=== PATIENT | female | born 1975 | race Caucasian/White ===

== ENCOUNTER 2016-06-23 14:40 | Emergency (ER) | payer SELFPAY ==
[~2016-06-23] VITALS: Ht 152.4 cm; Wt 133.0 kg
[2016-06-23 14:52] VITALS: TEMP 36.5; Ht 152.4 cm; Wt 133.0 kg
--- NOTE | 2016-06-23 15:43 | EMERGENCY ROOM VISIT NOTE ---
History Report prepared by Ludmila: Alta Acosta Under the Supervision of: Dr. Noah Brown M.D. First contact with patient: 15:03 Chief Complaint: HYPERGLYCEMIA Stated Complaint: FREQUENT URINATION,BLURRED VISION,THIRSTY Nursing Triage Summary: Triage note: Pt ambulatory to triage. pt reports "for the past week i have been feeling off and not myself." pt reports for the past week headache, increased thirst, and "going to the bathroom a lot." pt denies any hx of being a diabetic but had her bsg checked at home at 1305 and it was 305 and bsg was 267 at 1400. History of Present Illness The patient is a 40 year old female who presents to the Emergency Room with complaints of waxing and waning hyperglycemia for the past couple of weeks. The patient reports dry mouth, increased thirst, and increased urination over the past few weeks. Her brother has Diabetes and has been checking her blood sugar. He states that it has been in the high 200s and low 300s. 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 The patient reports a headache and tingling in her hands. She states that she just feels generally "weird." She has not eaten anything today. Source of History: patient, family (brother) Onset: a couple of weeks ago Position: other (global) Symptom Intensity: BSG 250 - 308 Quality: other (hyperglycemia) Timing: waxes/wanes Associated Symptoms: + headache Review of Systems See HPI for pertinent positives & negatives. A total of 10 systems reviewed and were otherwise negative. Past Medical & Surgical Medical Problems: (1) Asthma, Unspecified (2) Morbid Obesity (3) Otitis externa of right ear (4) Otitis externa of right ear Surgical Problems: (1) Previous section (2) S/P appendectomy (3) S/P tonsillectomy (4) Tubal Ligation Status Family History Cancer Diabetes mellitus Heart disease Hypertension Social History Smoking Status: Current Every Day Smoker Alcohol Use: none Marital Status: single Occupation Status: employed Current/Historical Medications No Active Prescriptions or Reported Meds Allergies Coded Allergies: Amoxicillin (Verified Allergy, Intermediate, HIVES SOB, 04/04/15) Acetaminophen (Verified Allergy, Unknown, 04/04/15) Codeine (Verified Allergy, Unknown, 04/04/15) Penicillins (Verified Allergy, Unknown, hives, sob, 04/04/15) Physical Exam Vital Signs Date Time Temp Pulse Resp B/P Pulse Ox O2 Delivery O2 Flow Rate FiO2 06/23/16 17:39 90 20 127/86 97 06/23/16 16:16 87 06/23/16 16:12 84 20 95/67 97 Room Air 06/23/16 14:52 36.5 100 18 144/88 96 Room Air Physical Exam GENERAL: Patient is a healthy-appearing well-nourished 40 year old female HEAD: Normocephalic atraumatic EYES: Ocular movements intact pupils equal and react to light OROPHARYNX mucous membranes are moist no exudates present no erythema or edema present NECK: Supple no nuchal rigidity CHEST: Good equal expansion LUNGS: Clear and equal to auscultation CARDIAC: Normal S1 and S2 ABDOMEN: Soft nontender no guarding BACK: No CVA tenderness EXTREMITIES: No pain upon palpation normal muscle strength in all groups no clubbing cyanosis or edema NEURO: Patient is following commands is answering questions appropriately. Alert and oriented x3 Cranial Nerves 2-12 grossly intact Medical Decision & Procedures ER Provider Diagnostic Interpretation: Radiology results as stated below per my review and radiologist interpretation: CT SCAN OF THE BRAIN WITHOUT IV CONTRAST CLINICAL HISTORY: Headache. COMPARISON STUDY: CT scan of the temporal bones dated 12/10/2013. TECHNIQUE: Unenhanced axial CT scan of the brain is performed from the vertex to the skull base. Automated dose control exposure was utilized. CT DOSE: 751.47 mGy.cm FINDINGS: Brain parenchyma: The brain parenchyma is normal in appearance. There is no hemorrhage, mass effect, or evidence of acute territorial ischemia by CT criteria. Martinez-white matter is preserved. No extra-axial fluid collection is seen. Ventricles, sulci, cisterns: Normal in configuration. Intracranial vasculature: The visualized intracranial vasculature at the skull base is normal in appearance. Calvarium: Unremarkable. Sinuses and mastoids: The visualized paranasal sinuses are clear. The mastoid air cells are well pneumatized. Orbits: The bony orbits are grossly intact. IMPRESSION: No acute intracranial abnormality. Electronically signed by: Edgard Cody M.D. 06/23/2016 4:28 PM Dictated Date/Time: 06/23/2016 4:26 PM Laboratory Results 06/23/16 15:55 Red Blood Count 5.42, Mean Corpuscular Volume 88.4, Mean Corpuscular Hemoglobin 31.4, Mean Corpuscular Hemoglobin Concent 35.5, Mean Platelet Volume 10.5, Neutrophils (%) (Auto) 57.6, Lymphocytes (%) (Auto) 35.6, Monocytes (%) (Auto) 4.5, Eosinophils (%) (Auto) 1.8, Basophils (%) (Auto) 0.3, Neutrophils # (Auto) 5.92, Lymphocytes # (Auto) 3.66, Monocytes # (Auto) 0.46, Eosinophils # (Auto) 0.18, Basophils # (Auto) 0.03 06/23/16 15:55 Test 06/23/16 15:20 06/23/16 15:55 Bedside Glucose 136 mg/dl (70-90) White Blood Count 10.27 K/uL (4.8-10.8) Red Blood Count 5.42 M/uL (4.2-5.4) Hemoglobin 17.0 g/dL (12.0-16.0) Hematocrit 47.9 % (37-47) Mean Corpuscular Volume 88.4 fL (80-100) Mean Corpuscular Hemoglobin 31.4 pg (25-34) Mean Corpuscular Hemoglobin Concent 35.5 g/dl (32-36) Platelet Count 295 K/uL (130-400) Mean Platelet Volume 10.5 fL (7.4-10.4) Neutrophils (%) (Auto) 57.6 % Lymphocytes (%) (Auto) 35.6 % Monocytes (%) (Auto) 4.5 % Eosinophils (%) (Auto) 1.8 % Basophils (%) (Auto) 0.3 % Neutrophils # (Auto) 5.92 K/uL (1.4-6.5) Lymphocytes # (Auto) 3.66 K/uL (1.2-3.4) Monocytes # (Auto) 0.46 K/uL (0.11-0.59) Eosinophils # (Auto) 0.18 K/uL (0-0.5) Basophils # (Auto) 0.03 K/uL (0-0.2) RDW Standard Deviation 43.1 fL (36.4-46.3) RDW Coefficient of Variation 13.4 % (11.5-14.5) Immature Granulocyte % (Auto) 0.2 % Immature Granulocyte # (Auto) 0.02 K/uL (0.00-0.02) Urine Color YELLOW Urine Appearance CLEAR (CLEAR) Urine pH 6.0 (4.5-7.5) Urine Specific [place] <= 1.005 (1.000-1.030) Urine Protein NEG (NEG) Urine Glucose (UA) NEG (NEG) Urine Ketones NEG (NEG) Urine Occult Blood NEG (NEG) Urine Nitrite NEG (NEG) Urine Bilirubin NEG (NEG) Urine Urobilinogen NEG (NEG) Urine Leukocyte Esterase NEG (NEG) Anion Gap 7.0 mmol/L (3-11) Est Creatinine Clear Calc Drug Dose 144.7 ml/min Estimated GFR () 129.2 Estimated GFR (Non- 111.5 BUN/Creatinine Ratio 12.5 (10-20) Calcium Level 9.2 mg/dl (8.5-10.1) Total Bilirubin 0.6 mg/dl (0.2-1) Direct Bilirubin mg/dl (0-0.2) Aspartate Amino Transf (AST/SGOT) U/L (15-37) Alanine Aminotransferase (ALT/SGPT) 39 U/L (12-78) Alkaline Phosphatase 73 U/L (45-117) Total Protein 7.8 gm/dl (6.4-8.2) Albumin 3.9 gm/dl (3.4-5.0) Triglycerides Level 119 mg/dl (0-150) Cholesterol Level 138 mg/dl (0-200) HDL Cholesterol 30 mg/dl LDL Cholesterol, Calculated 84 mg/dl VLDL Cholesterol, Calculated 24 mg/dl Cholesterol/HDL Ratio 4.6 Lipase 130 U/L (73-393) Labs reviewed by ED physician. Medications Administered Medications (Trade) Dose Ordered Sig/Monique Route Start Time Stop Time Status Last Admin Dose Admin Sodium Chloride (Nss 1000ml) 1,000 ml @ 999 mls/hr Q1H1M STAT IV 06/23/16 15:45 06/23/16 16:45 DC 06/23/16 16:01 999 MLS/HR Ketorolac Tromethamine (Toradol Inj) 30 mg NOW STAT IV 06/23/16 15:45 06/23/16 15:47 DC 06/23/16 16:00 30 MG Prochlorperazine Edisylate (Compazine Inj) 10 mg NOW STAT IV 06/23/16 15:45 06/23/16 15:47 DC 06/23/16 16:01 10 MG Diphenhydramine HCl (Benadryl Inj) 50 mg NOW STAT IV 06/23/16 15:45 06/23/16 15:47 DC 06/23/16 16:01 50 MG ED Course 1503: Past medical records reviewed. The patient was evaluated in room B11B. A complete history and physical examination was performed. 1545: Benadryl 50 mg IV, Compazine 10 mg IV, Toradol 30 mg IV, NSS 1000 ml @ 999 mls/hr IV 1653: I reassessed the patient at this time. She is doing well. 1736: I reassessed the patient. She is feeling better and resting comfortably. I discussed the results and treatment plan with the patient. I answered all pertaining questions that she had. She expressed understanding and verbalized agreement. The patient will be discharged home. Medical Decision This is a 40-year-old female who presents emergency department over concerns she has been taking her sugar at home and is been high. Upon arrival to the emergency department the patient does not have a large elevation in her blood sugar. She has been fasting today therefore a lipid panel was obtained along with a hemoglobin A1c. I did have case management see the patient so that the patient can be seen by [facility] and so we can get started on the patient's insurance. The patient was given normal saline bolus, Toradol, , zinc, Benadryl for her headache. Repeat examination revealed improvement patient's symptoms. I do believe the patient as well as discharged home however stressed the need for close follow-up with [facility]. Patient was in agreement with the treatment plan. Impression Primary Impression: Hyperglycemia Scribe Attestation The scribe's documentation has been prepared under my direction and personally reviewed by me in its entirety. I confirm that the note above accurately reflects all work, treatment, procedures, and medical decision making performed by me. Departure Information Dispostion Home / Self-Care Prescriptions No Active Prescriptions or Reported Meds Referrals No Doctor, Assigned (PCP) [facility] Forms HOME CARE DOCUMENTATION FORM, IMPORTANT VISIT INFORMATION, WORK / SCHOOL INSTRUCTIONS Patient Instructions ED Hyperglycemia New Susp Diabetes, My [facility] Additional Instructions Need follow up with [facility] You have been examined and treated today on an emergency basis only. This is not a substitute for, or an effort to provide, complete comprehensive medical care. It is impossible to recognize and treat all injuries or illnesses in a single emergency department visit. It is therefore important that you follow up closely with [facility]. Call as soon as possible for an appointment. Thank you for your time and consideration. I look forward to speaking with you again soon. Please don't hesitate to call us if you have any questions.
[2016-06-23] MEDS ORDERED: KETOROLAC TROMETHAMINE 30 MG/ML VIAL IV STA (15:45)
[2016-06-23] MEDS ORDERED: SODIUM CHLORIDE 0.9% 1000ML 1,000 ML IV STA (15:45)
[2016-06-23] MEDS ORDERED: PROCHLORPERAZINE 5 MG/ML 2 ML VIAL IV STA (15:45)
[2016-06-23] MEDS ORDERED: DiphenhydrAMINE HCL 50 MG/ML VIAL IV STA (15:45)
[2016-06-23 16:09] LABS: MANUAL MICROSCOPIC REQUIRED? NO; REVIEW REQ? NO; URINE APPEARANCE CLEAR (CLEAR); URINE BILIRUBIN NEG (NEG); URINE COLOR YELLOW; URINE NITRITE NEG (NEG); URINE SPECIFIC GRAVITY <= 1.005 (1.000-1.030); UROBILINOGEN NEG (NEG)
[2016-06-23 16:20] LABS: BASO % 0.3 %; BASO ABS # 0.03 K/uL (0-0.2); COMPLETE YES; EOS % 1.8 %; HEMATOCRIT 47.9 % (37-47); IG% 0.2 %; LYMPH % 35.6 %; LYMPH ABS # 3.66 K/uL (1.2-3.4); MEAN CELL VOLUME 88.4 fL (80-100); MEAN CORPUSCULAR HEMOGLOBIN 31.4 pg (25-34); MEAN CORPUSCULAR HGB CONC 35.5 g/dl (32-36); MEAN PLATELET VOLUME 10.5 fL (7.4-10.4); MONO % 4.5 %; NEUT % 57.6 %; PLATELET COUNT 295 K/uL (130-400); RED BLOOD COUNT 5.42 M/uL (4.2-5.4); WHITE BLOOD COUNT 10.27 K/uL (4.8-10.8)
--- NOTE | 2016-06-23 16:29 | DIAGNOSTIC IMAGING REPORT ---
CT SCAN OF THE BRAIN WITHOUT IV CONTRAST CLINICAL HISTORY: Headache. COMPARISON STUDY: CT scan of the temporal bones dated 12/10/2013. TECHNIQUE: Unenhanced axial CT scan of the brain is performed from the vertex to the skull base. Automated dose control exposure was utilized. CT DOSE: 751.47 mGy.cm FINDINGS: Brain parenchyma: The brain parenchyma is normal in appearance. There is no hemorrhage, mass effect, or evidence of acute territorial ischemia by CT criteria. Martinez-white matter is preserved. No extra-axial fluid collection is seen. Ventricles, sulci, cisterns: Normal in configuration. Intracranial vasculature: The visualized intracranial vasculature at the skull base is normal in appearance. Calvarium: Unremarkable. Sinuses and mastoids: The visualized paranasal sinuses are clear. The mastoid air cells are well pneumatized. Orbits: The bony orbits are grossly intact. IMPRESSION: No acute intracranial abnormality. Electronically signed by: Edgard Cody M.D. 06/23/2016 4:28 PM Dictated Date/Time: 06/23/2016 4:26 PM
[2016-06-23 16:42] LABS: ALKALINE PHOSPHATASE 73 U/L (45-117); ALT/SGPT 39 U/L (12-78); BLOOD UREA NITROGEN 8 mg/dl (7-18); CALCIUM 9.2 mg/dl (8.5-10.1); CARBON DIOXIDE 26 mmol/L (21-32); CREATININE 0.67 mg/dl (0.60-1.20); TRIGLYCERIDES 119 mg/dl (0-150)
[2016-06-23 16:44] LABS: BUN/CREATININE RATIO 12.5 (10-20); CHLORIDE 105 mmol/L (98-107); CHOLESTEROL 138 mg/dl (0-200); CHOLESTEROL/HDL RATIO 4.6; GLUCOSE 126 mg/dl (70-99); HDL CHOLESTEROL 30 mg/dl; LDL CHOLESTEROL CALCULATED 84 mg/dl; SODIUM 138 mmol/L (136-145); VERY LOW DENSITY LIPOPROT CALC 24 mg/dl
[2016-06-23 17:39] VITALS: BP 127/86; PULSE 90; O2SAT 97
[2016-06-25 06:05] LABS: ESTIMATED AVERAGE GLUCOSE 183 mg/dl; HA1C FLAG Normal (Normal)
[2016-09-14] MEDS ORDERED: ATOR10TA88 PO (18:02)
== END 2016-06-23 17:40 | disposition home or self-care (01) ==
LOC: C.EDB 14:41
DX: R73.9 Hyperglycemia, unspecified (principal); J45.909 Unspecified asthma, uncomplicated; E66.01 Morbid (severe) obesity due to excess calories; F17.210 Nicotine dependence, cigarettes, uncomplicated

== ENCOUNTER 2016-09-14 17:15 | Emergency (ER) | payer OTHER ==
[~2016-09-14] VITALS: Ht 157.5 cm; Wt 125.7 kg
[2016-09-14 17:28] VITALS: TEMP 36.7; Ht 157.5 cm; Wt 125.7 kg
[2016-09-14] MEDS ORDERED: ATOR10TA82 PO (18:02)
[2016-09-14] MEDS ORDERED: ASPI81TA25 PO (18:02)
[2016-09-14] MEDS ORDERED: GLC/500 PO (18:02)
[2016-09-14] MEDS ORDERED: KETOROLAC TROMETHAMINE 60 MG/2 ML VIAL IM STA (18:30)
[2016-09-14] MEDS ORDERED: CYCLOBENZAPRINE HCL 10 MG TAB PO STA (18:30)
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
[2016-09-14 19:28] VITALS: BP 121/67; PULSE 74; O2SAT 96
[2016-09-14] MEDS ORDERED: CYCL10TA6 PO (19:35)
== END 2016-09-14 19:46 | disposition home or self-care (01) ==
LOC: C.EDB 17:18 → C.EDA 19:46
DX: M54.2 Cervicalgia (principal); M25.512 Pain in left shoulder; V43.52XA Car driver injured in collision with other type car in traffic accident, initial encounter; Y92.488 Other paved roadways as the place of occurrence of the external cause; J45.909 Unspecified asthma, uncomplicated; E11.9 Type 2 diabetes mellitus without complications; E78.5 Hyperlipidemia, unspecified; E66.01 Morbid (severe) obesity due to excess calories; Z79.82 Long term (current) use of aspirin; Z79.899 Other long term (current) drug therapy; F17.210 Nicotine dependence, cigarettes, uncomplicated

== ENCOUNTER 2021-03-01 15:30 | Inpatient (IN) ==
[2021-03-01 16:37] LABS: Albumin Globulin Ratio 0.6 (0.9-2); Albumin Level 3.1 gm/dl (3.4-5.0); BUN Creatinine Ratio 11.2 (10-20); Bilirubin,Total 0.5 mg/dl (0.2-1); Calcium 9.6 mg/dl (8.5-10.1); Creatinine Clr Calc Pharmacy 115.8 ml/min; Est GFR (African American) 116.9 ml/min; Est GFR (Non-African American) 100.9 ml/min; Globulin 5.1 gm/dl (2.5-4.0); Total Protein 8.2 gm/dl (6.4-8.2)
[2021-03-01 17:14] LABS: Basophils # (auto) 0.02 K/uL (0-0.2); Basophils % (auto) 0.2 %; Eosinophils # (auto) 0.15 K/uL (0-0.5); Eosinophils % (auto) 1.2 %; Hematocrit (blood only) 48.3 % (37-47); Hemoglobin 17.3 g/dL (12.0-16.0); Immature Granulocytes # (auto) 0.03 K/uL (0.00-0.02); Immature Granulocytes % (auto) 0.2 %; Lymphocytes # (auto) 3.74 K/uL (1.2-3.4); Lymphocytes % (auto) 30.7 %; Mean Corpuscular Hemoglobin 30.8 pg (25-34); Mean Corpuscular Hgb Conc 35.8 g/dL (32-36); Mean Corpuscular Volume 86.1 fL (80-100); Mean Platelet Volume 9.6 fL (7.4-10.4); Monocytes # (auto) 0.86 K/uL (0.11-0.59); Monocytes % (auto) 7.1 %; Neutrophils # (auto) 7.37 K/uL (1.4-6.5); Neutrophils % (auto) 60.6 %; Platelet Count 359 K/uL (130-400); RDW Coefficient of Variation 13.2 % (11.5-14.5); Red Blood Count 5.61 M/uL (4.2-5.4); White Blood Count 12.17 K/uL (4.8-10.8)
[2021-03-01 17:34] LABS: Potassium 4.9 mmol/L (3.5-5.1)
[2021-03-01 17:47] LABS: Beta-Hydroxybutyrate 1.6 mg/dl (0.2-2.81)
[2021-03-01] MEDS ORDERED: MoRPHine SULFATE 4 MG/ML 1 ML CARP\\VIAL IV STA (18:29)
[2021-03-01] MEDS ORDERED: SODIUM CHLORIDE 0.9% 1000ML 1,000 ML IV ONE (18:29)
[2021-03-01] MEDS ORDERED: ONDANSETRON INJ 2 MG/ML 2 ML VIAL IV STA (18:29)
[2021-03-01] MEDS ORDERED: NovoLIN-R INSULIN PER UNIT CHARGE IV STA (18:31)
--- NOTE | 2021-03-01 18:35 | Emergency Department Note ---
History of Present Illness General Chief complaint: Dental/Oral Stated complaint: MOUTH PAIN AND SWELLING Time Seen by Provider: 03/01/21 18:22 Source: patient History of Present Illness Provider complaint: Facial pain Onset (ago): day(s) Location: face, mouth and right Pain Consistency: + constant Maximum Pain Intensity: 10 Quality: + sharp Relieved By: + none Associated symptoms: + fever/chills and + nausea/vomiting (Nausea without vomiting); no chest pain, no cough, no headaches or no shortness of breath This is a 45-year-old female who presents with facial pain status post 3 dental extractions approximately 8 days ago. She describes pain as sharp. She rates it a 10 out of 10 in severity. It does radiate to behind her eyes. Is worse when she touches it. It is associated with facial swelling. She was reevaluated by her dentist who stated it was not dry socket. She has an appo intment tomorrow to see him again but she could not wait due to the pain. She was given Tylenol with codeine No. 3. She also just finished her course of clindamycin over 10 days. She has nausea without vomiting. She had a fever of 101. She denies any cough, chest pain, shortness of breath, abdominal pain. She has not checked her sugars. Home Medications Medication Instructions Recorded Confirmed Type multivitamin (Daily Multi-Vitamin) 1 tab PO QAM 08/06/19 03/01/21 History omeprazole 20 mg capsule,delayed 40 mg PO BID 11/26/19 03/01/21 History release metformin 500 mg tablet,extended 1,000 mg PO BID 02/25/20 03/01/21 History release 24 hr aspirin 81 mg tablet,delayed 81 mg PO QAM 02/03/21 03/01/21 History release (Aspirin Low Dose) lisinopril 5 mg tablet (Zestril) 5 mg PO QAM 02/03/21 03/01/21 History rosuvastatin 20 mg tablet (Crestor) 20 mg PO QAM 02/03/21 03/01/21 History oxycodone 5 mg tablet 5 mg PO Q4H PRN #15 tab 02/18/21 03/01/21 Rx Saccharomyces boulardii 250 mg 250 mg PO BID #20 cap 02/19/21 03/01/21 Rx capsule (Florastor) Pill Form Of Trulicity 1 dose PO DIRECTED 03/01/21 03/01/21 History Allergies Allergy/AdvReac Type Severity Reaction Status Date / Time amoxicillin Allergy Intermediate Hives and Verified 03/01/21 18:06 shortness of breath Penicillins Allergy Intermediate Hives and Verified 03/01/21 18:06 shortness of breath Past Med/Surg History Medical History (Updated 03/01/21 @ 21:51 by Emir Zepeda MD) Diabetes mellitus, type 2 HLD (hyperlipidemia) Hx of bronchitis Hypertension No significant family history Osteoarthritis Peripheral neuropathy Surgical History History of appendectomy History of section X 1 History of tonsillectomy and adenoidectomy [place] teeth removed Family History Brother Family history of diabetes mellitus Grandmother (Maternal) Family history of diabetes mellitus Social History Smoking Status: Current every day smoker Tobacco Type: Cigarettes Cigarettes Per Day: 10-20 DAILY; Second Hand Exposure: Yes; Hx Alcohol Use: No Hx Substance Use: Yes Last Used Substance Other:: LAST USED 2-3 WEEKS (ADVISED) Preferred Language: Citizen Of [place] [employer] Straight[employer] Required: No Beliefs That Will Affect Care: None marital status: Current Living Situation: Spouse Feels Safe at Home: Yes Assistive Devices: Glasses Review of Systems See HPI for pertinent positives & negatives. and A total of 10 systems reviewed and were otherwise negative Physical Exam Vital Signs Vital Signs - 24 hr 03/01/21 15:31 03/01/21 18:20 03/01/21 19:13 Temperature 36.4 C L Temperature Source Oral Pulse Rate 122 H 114 H Pulse Rate [Right Finger] 95 H Pulse Rate from SpO2 Sensor 115 H Pulse Rhythm [Right Finger] Regular Respiratory Rate 20 20 20 Respiratory Effort / Characteristics Non-Labored Spontaneous Non-Labored Spontaneous Respiratory Depth Normal Normal Respiratory Pattern Regular Blood Pressure 158/109 H 142/89 H Blood Pressure [Right Arm] 147/109 H Blood Pressure Mean 125 106 Blood Pressure Mean [Right Arm] 121 Blood Pressure Position [Right Arm] Lying Pulse Oximetry 96 100 99 Oxygen Delivery Method Room Air Room Air Room Air Sepsis Recent Fever Within 48 Hours No Sepsis New/Unexplained Change in Mental Status N/A Sepsis Action Taken by Nursing No Action Required 03/01/21 19:32 03/01/21 20:01 03/01/21 21:00 Temperature Temperature Source Pulse Rate 82 Pulse Rate [Right Finger] Pulse Rate from SpO2 Sensor 83 Pulse Rhythm [Right Finger] Respiratory Rate 14 Respiratory Effort / Characteristics Respiratory Depth Respiratory Pattern Blood Pressure 132/80 161/92 H 178/99 H Blood Pressure [Right Arm] Blood Pressure Mean 97 115 125 Blood Pressure Mean [Right Arm] Blood Pressure Position [Right Arm] Pulse Oximetry 96 99 97 Oxygen Delivery Method Room Air Room Air Room Air Sepsis Recent Fever Within 48 Hours Sepsis New/Unexplained Change in Mental Status Sepsis Action Taken by Nursing 03/01/21 21:30 Temperature Temperature Source Pulse Rate 94 H Pulse Rate [Right Finger] Pulse Rate from SpO2 Sensor 92 H Pulse Rhythm [Right Finger] Respiratory Rate 24 Respiratory Effort / Characteristics Respiratory Depth Respiratory Pattern Blood Pressure 162/92 H Blood Pressure [Right Arm] Blood Pressure Mean 115 Blood Pressure Mean [Right Arm] Blood Pressure Position [Right Arm] Pulse Oximetry 97 Oxygen Delivery Method Sepsis Recent Fever Within 48 Hours Sepsis New/Unexplained Change in Mental Status Sepsis Action Taken by Nursing Constitutional: Vital signs reviewed. Eyes: Pupils are equal round reactive to light. Conjunctiva are noninjected. No proptosis. Pain with extraocular movement. ENT: Pharynx is clear without erythema or exudate. Mucous membranes are moist. Status post dental extractions right maxillary jaw. No evidence of dry socket. Tenderness diffusely throughout the area with tenderness to the right face over the maxillary sinus. Neck supple without meningeal signs. Respiratory: Clear to auscultation bilaterally. Breath sounds are equal bilaterally. Cardiovascular: Regular rate and rhythm. No rubs or gallops. GI: Soft, nondistended and nontender. Bowel sounds are present. Musculoskeletal: No peripheral edema. No lower extremity tenderness. Integumentary: No cyanosis. or jaundice. Neurological: The patient is awake and alert. No focal deficits. Psychiatric: Anxious. Course Administered Medications Discontinued Medications Hydromorphone HCl (Hydromorphone Inj 0.5 Mg/0.5 Ml Syr) 0.5 mg IV NOW STA Stop: 03/01/21 19:45 Last Admin: 03/01/21 20:16 Dose: 0.5 mg Documented by: [id number] Hydromorphone HCl (Hydromorphone Inj 0.5 Mg/0.5 Ml Syr) 0.5 mg IV NOW STA Stop: 03/01/21 21:45 Last Admin: 03/01/21 21:49 Dose: 0.5 mg Documented by: [id number] Sodium Chloride (Nss 1000ml) 1,000 mls @ 999 mls/hr IV .Q1H1M ONE Stop: 03/01/21 19:29 Last Infusion: 03/01/21 20:08 Dose: 0 mls/hr Documented by: [id number] Admin: 03/01/21 19:07 Dose: 999 mls/hr Documented by: [id number] Ceftriaxone Sodium (Rocephin) 2,000 mg in 70 mls @ 140 mls/hr IV NOW STA Stop: 03/01/21 20:13 Last Infusion: 03/01/21 20:47 Dose: 0 mls/hr Documented by: [id number] Admin: 03/01/21 20:17 Dose: 140 mls/hr Documented by: [id number] Metronidazole (Flagyl) 500 mg in 100 mls @ 100 mls/hr IV NOW STA Stop: 03/01/21 21:02 Last Infusion: 03/01/21 22:01 Dose: 0 mls/hr Documented by: [id number] Admin: 03/01/21 21:00 Dose: 100 mls/hr Documented by: [id number] Insulin Human Regular (Novolin-R Insulin Per Unit Charge) 5 units IV NOW STA Stop: 03/01/21 18:32 Last Admin: 03/01/21 19:06 Dose: 5 units Documented by: [id number] Cosigned by: [id number] Ioversol (Optiray 320 100ml) 95 ml IV ONCE ONE Stop: 03/01/21 19:27 Last Admin: 03/01/21 19:28 Dose: 95 ml Documented by: [id number] Morphine Sulfate (Morphine Sulfate 4 Mg/Ml 1 Ml Carp\Vial) 4 mg IV NOW STA Stop: 03/01/21 18:30 Last Admin: 03/01/21 19:07 Dose: 4 mg Documented by: [id number] Ondansetron HCl (Ondansetron Inj 2 Mg/Ml 2 Ml Vial) 4 mg IV NOW STA Stop: 03/01/21 18:30 Last Admin: 03/01/21 19:07 Dose: 4 mg Documented by: [id number] Medical Decision Making Differential Diagnosis Cellulitis, abscess, orbital cellulitis, postoperative pain, dry socket Medical Records Attestation: I reviewed the patient's medical records. I did perform a limited focused review of portions of the patient's old chart on the electronic medical record. The patient was seen here on the of this month for dental pain. She had a CT scan of the face which did not show an abscess. She was discharged home to follow-up with her dentist. Home Medications Current Medication List: was personally reviewed by me Laboratory Data Attestation: I reviewed the patient's lab results. Result diagrams: 03/01/21 17:01 03/01/21 17:01 Lab Results 03/01/21 03/01/21 03/01/21 Range/Units 16:00 17:01 17:01 WBC 12.17 H (4.8-10.8) K/uL RBC 5.61 H (4.2-5.4) M/uL Hgb 17.3 H (12.0-16.0) g/dL Hct 48.3 H (37-47) % MCV 86.1 (80-100) fL MCH 30.8 (25-34) pg MCHC 35.8 (32-36) g/dL RDW Std Deviation 42.0 (36.4-46.3) fL RDW Coeff of Luke 13.2 (11.5-14.5) % Plt Count 359 (130-400) K/uL MPV 9.6 (7.4-10.4) fL Immature Gran % (Auto) 0.2 % Neut % (Auto) 60.6 % Lymph % (Auto) 30.7 % Newton % (Auto) 7.1 % Eos % (Auto) 1.2 % Baso % (Auto) 0.2 % Neut # (Auto) 7.37 H (1.4-6.5) K/uL Lymph # (Auto) 3.74 H (1.2-3.4) K/uL Newton # (Auto) 0.86 H (0.11-0.59) K/uL Eos # (Auto) 0.15 (0-0.5) K/uL Baso # (Auto) 0.02 (0-0.2) K/uL Immature Gran # (Auto) 0.03 H (0.00-0.02) K/uL Sodium 128 L (136-145) mmol/L Potassium 4.9 (3.5-5.1) mmol/L Chloride 100 (98-107) mmol/L Carbon Dioxide 21 (21-32) mmol/L Anion Gap 7.0 (3-11) BUN 8 (7-18) mg/dl Creatinine 0.73 (0.6-1.2) mg/dl Est Cr Clr Drug Dosing 115.8 ml/min Est GFR ( Amer) 116.9 ml/min Est GFR (Non-Af Amer) 100.9 ml/min BUN/Creatinine Ratio 11.2 (10-20) Glucose 342 H* (70-99) mg/dl POC Glucose (70-99) mg/dl Calcium 9.6 (8.5-10.1) mg/dl Total Bilirubin 0.5 (0.2-1) mg/dl AST 21 (15-37) U/L ALT 41 (12-78) U/L Alkaline Phosphatase 72 (45-117) U/L Total Protein 8.2 (6.4-8.2) gm/dl Albumin 3.1 L (3.4-5.0) gm/dl Globulin 5.1 H (2.5-4.0) gm/dl Albumin/Globulin Ratio 0.6 L (0.9-2) Beta-Hydroxybutyric Acd 1.60 (0.2-2.81) mg/dl HCG, Qual (Negative) COVID-19 Eval Order SARS-CoV-2 (PCR) (Negative) 03/01/21 03/01/21 03/01/21 Range/Units 17:01 20:00 20:00 WBC (4.8-10.8) K/uL RBC (4.2-5.4) M/uL Hgb (12.0-16.0) g/dL Hct (37-47) % MCV (80-100) fL MCH (25-34) pg MCHC (32-36) g/dL RDW Std Deviation (36.4-46.3) fL RDW Coeff of Luke (11.5-14.5) % Plt Count (130-400) K/uL MPV (7.4-10.4) fL Immature Gran % (Auto) % Neut % (Auto) % Lymph % (Auto) % Newton % (Auto) % Eos % (Auto) % Baso % (Auto) % Neut # (Auto) (1.4-6.5) K/uL Lymph # (Auto) (1.2-3.4) K/uL Newton # (Auto) (0.11-0.59) K/uL Eos # (Auto) (0-0.5) K/uL Baso # (Auto) (0-0.2) K/uL Immature Gran # (Auto) (0.00-0.02) K/uL Sodium (136-145) mmol/L Potassium (3.5-5.1) mmol/L Chloride (98-107) mmol/L Carbon Dioxide (21-32) mmol/L Anion Gap (3-11) BUN (7-18) mg/dl Creatinine (0.6-1.2) mg/dl Est Cr Clr Drug Dosing ml/min Est GFR ( Amer) ml/min Est GFR (Non-Af Amer) ml/min BUN/Creatinine Ratio (10-20) Glucose (70-99) mg/dl POC Glucose (70-99) mg/dl Calcium (8.5-10.1) mg/dl Total Bilirubin (0.2-1) mg/dl AST (15-37) U/L ALT (12-78) U/L Alkaline Phosphatase (45-117) U/L Total Protein (6.4-8.2) gm/dl Albumin (3.4-5.0) gm/dl Globulin (2.5-4.0) gm/dl Albumin/Globulin Ratio (0.9-2) Beta-Hydroxybutyric Acd (0.2-2.81) mg/dl HCG, Qual Negative (Negative) COVID-19 Eval Order Covid19 at [facility] SARS-CoV-2 (PCR) NEGATIVE (Negative) 03/01/21 Range/Units 21:40 WBC (4.8-10.8) K/uL RBC (4.2-5.4) M/uL Hgb (12.0-16.0) g/dL Hct (37-47) % MCV (80-100) fL MCH (25-34) pg MCHC (32-36) g/dL RDW Std Deviation (36.4-46.3) fL RDW Coeff of Luke (11.5-14.5) % Plt Count (130-400) K/uL MPV (7.4-10.4) fL Immature Gran % (Auto) % Neut % (Auto) % Lymph % (Auto) % Newton % (Auto) % Eos % (Auto) % Baso % (Auto) % Neut # (Auto) (1.4-6.5) K/uL Lymph # (Auto) (1.2-3.4) K/uL Newton # (Auto) (0.11-0.59) K/uL Eos # (Auto) (0-0.5) K/uL Baso # (Auto) (0-0.2) K/uL Immature Gran # (Auto) (0.00-0.02) K/uL Sodium (136-145) mmol/L Potassium (3.5-5.1) mmol/L Chloride (98-107) mmol/L Carbon Dioxide (21-32) mmol/L Anion Gap (3-11) BUN (7-18) mg/dl Creatinine (0.6-1.2) mg/dl Est Cr Clr Drug Dosing ml/min Est GFR ( Amer) ml/min Est GFR (Non-Af Amer) ml/min BUN/Creatinine Ratio (10-20) Glucose (70-99) mg/dl POC Glucose 185 H (70-99) mg/dl Calcium (8.5-10.1) mg/dl Total Bilirubin (0.2-1) mg/dl AST (15-37) U/L ALT (12-78) U/L Alkaline Phosphatase (45-117) U/L Total Protein (6.4-8.2) gm/dl Albumin (3.4-5.0) gm/dl Globulin (2.5-4.0) gm/dl Albumin/Globulin Ratio (0.9-2) Beta-Hydroxybutyric Acd (0.2-2.81) mg/dl HCG, Qual (Negative) COVID-19 Eval Order SARS-CoV-2 (PCR) (Negative) Imaging Data Radiologist's Impression: Soft Tissue Neck CT 03/01/21 18:29 CT OF THE NECK WITH IV CONTRAST CLINICAL HISTORY: Right facial pain. Evaluate for abscess. COMPARISON STUDY: Facial CT February 19, 2021. TECHNIQUE: Following IV administration of 95 mL of Optiray, helical axial images of the neck were obtained. Sagittal and coronal reconstructions were viewed. Automated exposure control was utilized for the study. A dose lowering technique was utilized adhering to the principles of ALARA. CT DOSE: 701.43 mGy.cm FINDINGS: Visualized portions of the intracranial contents are unremarkable. The parotid and submandibular glands are within normal limits. The epiglottis is normal. Lung apices are clear. Major vasculature of the neck is patent. Severe odontogenic disease is noted. Multiple teeth are absent. There are numerous dental caries and periapical lucencies/abscesses. Of note, there has been interval development of a peripherally enhancing 2.5 x 1.3 x 1.1 cm fluid collection within the right infratemporal fossa since CT of February 19, 2021. There is mild extension into the inferolateral aspect of the right orbit. No intraorbital abscess is present. No additional fluid collections are present. There is no soft tissue gas. No bony destruction is present. Moderate mucosal thickening of the right maxillary sinus has increased. This is likely related to the odontogenic infection. IMPRESSION: 1. Interval development of a 2.5 x 1.3 x 1.1 cm abscess within the right infratemporal fossa since CT of February 19, 2021. This is likely odontogenic in etiology. Mild extension into the inferolateral aspect of the right orbit, as described above. ENT consultation is recommended. Findings discussed with Dr. Zepeda at time of dictation. 2. 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 3. Increase in right maxillary sinus mucosal thickening likely related to the odontogenic infection. ACT 112: Negative or not required by law. Electronically signed by: John Bedoya M.D. 03/01/2021 7:43 PM MDM Narrative I did evaluate the patient as noted above. The patient is presenting with fa cial pain and swelling after she had her teeth extracted last week. She has significant tenderness and swelling to the right face. There is no evidence of proptosis or any visual complaints. She does have pain with extraocular movements. IV access was established. I did place an order for continuous cardiac monitoring. The monitor showed normal sinus rhythm at a rate of 98 bpm. I did order blood cultures. I did order and review the patient's blood work as noted in the electronic medical record. Her white count is 12.1. Her hemoglobin is 17.3. Platelet count is 359. Chemistries demonstrate a a sodium of 128. Glucose is 342. Sodium corrected for hyperglycemia is 134. I did treat the patient with normal saline IV. She was also given insulin 5 units IV. Repeat blood sugar is 185. test was negative. I did order a CT of the soft tissue neck. I did review the images myself as well as the radiology report as described above. The patient has a 2-1/2 cm abscess in the right infratemporal fossa with mild extension into the orbit. I did discuss the test results with the patient. I initially treated her with IV morphine and Zofran. She still had pain and was given Dilaudid IV. I did discuss case with Dr. Pulliam of [facility]. He recommended treating patient with ceftriaxone and Flagyl IV. He did not feel any acute surgical intervention was needed at this time and agreed with my plan for admission to the hospital to the medical service. I did discuss the case with the hospitalist and lead case manager. I did treat the patient with 2 g of ceftriaxone IV and Flagyl 500 mg IV after confirming that she has not had any recent alcohol. Impression & Plan Abscess of infratemporal region, Acute hyperglycemia, Acute periapical abscess Discharge Plan Visit Data Chief Complaint: Dental/Oral Stated Complaint: MOUTH PAIN AND SWELLING ED Provider: Emir Zepeda Discharge Problem: Abscess of infratemporal region, Acute hyperglycemia, Acute periapical abscess Patient Disposition: Being Evaluated by Hospitalist Forms Stand Alone Forms: My [facility] Prescriptions Prescriptions: No Action multivitamin [Daily Multi-Vitamin] Tablet 1 tab PO QAM RF: 0 omeprazole 20 mg Capsule,Delayed Release(Dr/Ec) 40 mg PO BID RF: 0 metformin 500 mg tablet extended release 24 hr 1,000 mg PO BID RF: 0 aspirin [Aspirin Low Dose] 81 mg Tablet,Delayed Release (Dr/Ec) 81 mg PO QAM RF: 0 lisinopril [Zestril] 5 mg Tablet 5 mg PO QAM RF: 0 rosuvastatin [Crestor] 20 mg Tablet 20 mg PO QAM RF: 0 Pill Form Of Trulicity 1 dose PO DIRECTED RF: 0 oxycodone 5 mg tablet 5 mg PO Q4H PRN (Reason: pain) Qty: 15 RF: 0 Saccharomyces boulardii [Florastor] 250 mg capsule 250 mg PO BID Qty: 20 RF: 0 Referrals Referrals: [facility],Medicine [Primary Care Provider] -
[2021-03-01] MEDS ORDERED: OPTIRAY 320 100ml IV ONE (19:26)
[2021-03-01] MEDS ORDERED: cefTRIAXone SODIUM 2,000 MG/70 ML BAG IV STA (19:44)
[2021-03-01] MEDS ORDERED: HYDROmorphone INJ 0.5 MG/0.5 ML SYR IV STA ×2 (19:44→21:44)
--- NOTE | 2021-03-01 19:44 | CT Scan Report ---
CT OF THE NECK WITH IV CONTRAST CLINICAL HISTORY: Right facial pain. Evaluate for abscess. COMPARISON STUDY: Facial CT February 19, 2021. TECHNIQUE: Following IV administration of 95 mL of Optiray, helical axial images of the neck were ob tained. Sagittal and coronal reconstructions were viewed. Automated exposure control was utilized f or the study. A dose lowering technique was utilized adhering to the principles of ALARA. CT DOSE: 701.43 mGy.cm FINDINGS: Visualized portions of the intracranial contents are unremarkable. The parotid and submand ibular glands are within normal limits. The epiglottis is normal. Lung apices are clear. Major vascul ature of the neck is patent. Severe odontogenic disease is noted. Multiple teeth are absent. There ar e numerous dental caries and periapical lucencies/abscesses. Of note, there has been interval develop ment of a peripherally enhancing 2.5 x 1.3 x 1.1 cm fluid collection within the right infratemporal f [place] since CT of February 19, 2021. There is mild extension into the inferolateral aspect of the right orbit. No intraorbital abscess is present. No additional fluid collections are present. There is no soft tissue gas. No bony destruction is present. Moderate mucosal thickening of the right maxillary s inus has increased. This is likely related to the odontogenic infection. IMPRESSION: 1. Interval development of a 2.5 x 1.3 x 1.1 cm abscess within the right infratemporal fossa since CT of February 19, 2021. This is likely odontogenic in etiology. Mild extension into the inferolateral a spect of the right orbit, as described above. ENT consultation is recommended. Findings discussed wit sampson Zepeda at time of dictation. 2. 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 3. Increase in right maxillary sinus mucosal thickening likely related to the odontogenic infection. ACT 112: Negative or not required by law. Electronically signed by: John Bedoya M.D. 03/01/2021 7:43 PM
[2021-03-01 19:55] LABS: Pregnancy Test, Serum Negative (Negative)
[2021-03-01] MEDS ORDERED: metroNIDAZOLE 500 MG/100 ML BAG IV STA (20:03)
--- NOTE | 2021-03-01 20:45 | History & Physical Report ---
Date of Service March 01, 2021 Assessment & Plan (1) Dental infection: Plan: 45 y/o F w/ DM2 and recent multiple ED visits for R upper dental infection that worsened into abscess. Stable and afebrile this admission. Patient is septic from odontogenic infection, new 2.5 x 1.3 x 1.1 cm abscess within the right infratemporal fossa w/ mild extension into inferolateral orbit. Also has cellulitis. Failed outpatient PO Clinda x 10d. plan: IV Rocephin 2g daily and IV Flagyl q8h. Penicillin and amox allergy noted. Low rate of cross reactivity w/ Rocpehin. Tolerated dose of Rocephin in ED. Will continue. Monitor clinically. EOMI intact, lower suspicion of entrapment. - defer culture of dental socket - blood cultures pending - discuss w/ OMFS Dr. Pulliam in AM. Tentative plan is continue abx and no surgical intervention. - check trop, ecg, nasal MRSA; defer checking inflammatory markers as likely elevated - maintenance IV fluids (septic, but avoiding higher rate because hyponatremic) - pain regimen: PO tylenol 650mg q6h PRN, IV toradol 15mg q6h PRN (severe pain). PDMP reviewed. (2) Diabetes: Plan: A1c 8.0 07/13/20 - BSG 342 in ED, likely 2/2 not taking home metformin today. No anion gap and serum ketones are not elevated. - check A1C in AM - SSI+Lantus. Goal BSG 140-180. Lantus 8u BID. CF 40. CR 13. Check BSG ACHS. - maintenance rate NSS - hold home metformin. Patient states no longer taking Trulicity. (3) Hyponatremia: Plan: - asymptomatic - mostly likely 2/2 dehydration (hypovolemic hypotonic hypoNa) 2/2 decreased intake from dental pain. Less likely euvolemic HypoNa such as polydipsia or SIADH. - check BMP now (7 hours after ED labs) and in AM - defer lab workup as appears to be acute (137 on 02/19/21) and less likely from other causes of hypoNa - NSS 150/hr (maintenance rate) (4) Hypertension: Plan: - continue home regimen - consider extra 5mg lisinopril x1 if systolic BP >180 (5) HLD (hyperlipidemia): Plan: - continue home regimen Plan: FEN/GI: full liquid diet. NSS 150/hr (maintenance rate) ppx: sq heparin 5000u q12h code: full dispo: med/surg tele covid neg History of Present Illness Chief Complaint: Dental abscess Primary Care Provider: [facility] Mervat Alas is a 45 y/o female w/ PMHx of NIDDM, HTN, ETOH use disorder, depression, HLD, tobacco use, and CAD who presents w/ R upper dental pain since 02/17/21, was seen for this at [facility] on 02/18/21, 02/19/21 x2 and is s/p dental extractions ~02/20/21 and s/p course of clindamycin x 10 days (rx'd by ER). She is presenting w/ fever (101F x 2-3 days, intermittent), chills, sore throat, N/V, and severe sharp dental pain. Her symptoms worsened in the past several days. Current pain is 8-9/10 (some relief from the ED pain medications), throbbing, constant, exac by talking, eating, moving mouth. Pain is worse than before her dental extraction. Also has had 2 days of loose stools. She presents to the ED today because the pain is available and the earliest her dentist could see her is tomorrow. Denies other hospitalizations this year. She has been ibuprofen and Tylenol#3 at home w/o sufficient relief. Prior to this month, she had not seen a dentist in a maggie time, but denies hx of similar severe dental infection. She last took her home medications yesterday. Patient's PCP and dentist are at [facility]. Tobacco: has cut down, recently 1 pack a week. Denies illicit substance use. ED course: ED spoke w/ [employer] OM[facility] Dr. Pulliam. Not planning for surgical intervention at this time. IV Rocephin and Flagyl. CT soft tissue head/face showing new 2.5 x 1.3 x 1.1 cm abscess within the right infratemporal fossa w/ mild extension into inferolat aspect of R orbit. Hyponatremic 128. BSG 342. 5u IV insulin administered. Morphine IV 4 mg, Dilaudid IV 0.5 mg, and 1 L NSS bolus administered. Allergies Allergy/AdvReac Type Severity Reaction Status Date / Time amoxicillin Allergy Intermediate Hives and Verified 03/01/21 18:06 shortness of breath Penicillins Allergy Intermediate Hives and Verified 03/01/21 18:06 shortness of breath Home Medications Medication Instructions Recorded Confirmed Type multivitamin (Daily Multi-Vitamin) 1 tab PO QAM 08/06/19 03/01/21 History omeprazole 20 mg capsule,delayed 40 mg PO BID 11/26/19 03/01/21 History release metformin 500 mg tablet,extended 1,000 mg PO BID 02/25/20 03/01/21 History release 24 hr aspirin 81 mg tablet,delayed 81 mg PO QAM 02/03/21 03/01/21 History release (Aspirin Low Dose) lisinopril 5 mg tablet (Zestril) 5 mg PO QAM 02/03/21 03/01/21 History rosuvastatin 20 mg tablet (Crestor) 20 mg PO QAM 02/03/21 03/01/21 History oxycodone 5 mg tablet 5 mg PO Q4H PRN #15 tab 02/18/21 03/01/21 Rx Saccharomyces boulardii 250 mg 250 mg PO BID #20 cap 02/19/21 03/01/21 Rx capsule (Florastor) Pill Form Of Trulicity 1 dose PO DIRECTED 03/01/21 03/01/21 History Past Med/Surg History Medical History Diabetes mellitus, type 2 HLD (hyperlipidemia) Hx of bronchitis Hypertension No significant family history Osteoarthritis Peripheral neuropathy Surgical History History of appendectomy History of section X 1 History of tonsillectomy and adenoidectomy [place] teeth removed Family History Brother Family history of diabetes mellitus Grandmother (Maternal) Family history of diabetes mellitus Social History Smoking Status: Current every day smoker Tobacco Type: Cigarettes Cigarettes Per Day: 10-20 DAILY; Second Hand Exposure: Yes; Hx Alcohol Use: No Hx Substance Use: Yes Last Used Substance Other:: LAST USED 2-3 WEEKS (ADVISED) 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 Has been drinking water as tolerated. Eyes: + intermittent mild blurry vision on R when jaw/face is throbbing. ENT: + sore throat, sinus pain. Denies ear pain. Cardiovascular: Denies chest pain, palpitations Respiratory: Denies shortness of breath. Denies new cough. Gastrointestinal: Denies nausea, vomiting, constipation. + nausea earlier. + diarrhea Genitourinary: Denies urinary symptoms including dysuria Musculoskeletal: Denies weakness, muscle aches/pain, joint aches/pain Neurological: Denies numbness, tingling, focal weakness. + right half of face NOVOA, attributes to dental infection. Physical Exam Physical Exam: Vitals reviewed General: Grossly A&O. Patient appears uncomfortable from pain, has tears. Cooperative. Obese habitus. Poor dentition, several lower yellow teeth noted. Right upper part of mouth with 1 tooth socket noted that does not have blackened color or purulent appearance. HEENT: Atraumatic, normocephalic. EOMI. PERRL. No cervical LAD. Unable to visualize posterior oropharynx or uvula; Mallampati IV. Pulm: CTAB. -wheezes, -rales, -rhonchi. + sighing noted on inspiration. Mildly prolonged inspiration. No respiratory distress. Cardiac: Tachycardic rate, reg rhythm, -mrg. Radial pulses intact and symmetrical. tachycardic. Puffy appearance of lower extremities, no pitting edema. Abdominal: Nontender, nondistended, soft. Integ: Gross mild erythema or R cheek and infraorbital area; + mild increased warm; + pain to light touch. Neuro: Moving all extremities w/ normal sensation. Results & Data Results & Data ([facility]) Vital Signs (Past 12 Hours) Vital Signs tachycardic. afeb. elevated bp. Temp Pulse Pulse Resp BP BP Pulse Ox 03/01/21 18:20 95 H 20 147/109 H 100 03/01/21 15:31 36.4 C L 122 H 20 158/109 H 96 Laboratory Results 03/01/21 17:01 03/01/21 17:01 Cardiac Enzymes 03/01/21 03/01/21 Range/Units 16:00 17:01 AST 21 (15-37) U/L CBC 03/01/21 Range/Units 17:01 WBC 12.17 H (4.8-10.8) K/uL RBC 5.61 H (4.2-5.4) M/uL Hgb 17.3 H (12.0-16.0) g/dL Hct 48.3 H (37-47) % Plt Count 359 (130-400) K/uL Neut # (Auto) 7.37 H (1.4-6.5) K/uL Lymph # (Auto) 3.74 H (1.2-3.4) K/uL Bertie # (Auto) 0.86 H (0.11-0.59) K/uL Eos # (Auto) 0.15 (0-0.5) K/uL Baso # (Auto) 0.02 (0-0.2) K/uL Comprehensive Metabolic Panel 03/01/21 03/01/21 Range/Units 16:00 17:01 Sodium 128 L (136-145) mmol/L Potassium 4.9 (3.5-5.1) mmol/L Chloride 100 (98-107) mmol/L Carbon Dioxide 21 (21-32) mmol/L BUN 8 (7-18) mg/dl Creatinine 0.73 (0.6-1.2) mg/dl Glucose 342 H* (70-99) mg/dl Calcium 9.6 (8.5-10.1) mg/dl AST 21 (15-37) U/L ALT 41 (12-78) U/L Alkaline Phosphatase 72 (45-117) U/L Total Protein 8.2 (6.4-8.2) gm/dl Albumin 3.1 L (3.4-5.0) gm/dl Intake and Output 03/01/21 03/01/21 03/01/21 06:59 14:59 22:59 Intake Total 1000 / 1000 Balance 1000 / 1000 Intake: IV 1000 / 1000 Sodium Chloride 0.9% 1000ML 1, 1000 / 1000 000 ml @ 999 mls/hr IV .Q1H1M ONE Rx#:[id number] Other: Weight 112.9 kg Weight Measurement Method Chair Scale Patient Weight 03/02/21 06:59 Weight 112.9 kg Diagnostic Findings Soft Tissue Neck CT 03/01/21 18:29 CT OF THE NECK WITH IV CONTRAST CLINICAL HISTORY: Right facial pain. Evaluate for abscess. COMPARISON STUDY: Facial CT February 19, 2021. TECHNIQUE: Following IV administration of 95 mL of Optiray, helical axial images of the neck were obtained. Sagittal and coronal reconstructions were viewed. Automated exposure control was utilized for the study. A dose lowering technique was utilized adhering to the principles of ALARA. CT DOSE: 701.43 mGy.cm FINDINGS: Visualized portions of the intracranial contents are unremarkable. The parotid and submandibular glands are within normal limits. The epiglottis is normal. Lung apices are clear. Major vasculature of the neck is patent. Severe odontogenic disease is noted. Multiple teeth are absent. There are numerous dental caries and periapical lucencies/abscesses. Of note, there has been interval development of a peripherally enhancing 2.5 x 1.3 x 1.1 cm fluid collection within the right infratemporal fossa since CT of February 19, 2021. There is mild extension into the inferolateral aspect of the right orbit. No intraorbital abscess is present. No additional fluid collections are present. There is no soft tissue gas. No bony destruction is present. Moderate mucosal thickening of the right maxillary sinus has increased. This is likely related to the odontogenic infection. IMPRESSION: 1. Interval development of a 2.5 x 1.3 x 1.1 cm abscess within the right infratemporal fossa since CT of February 19, 2021. This is likely odontogenic in etiology. Mild extension into the inferolateral aspect of the right orbit, as described above. ENT consultation is recommended. Findings discussed with Dr. Zepeda at time of dictation. 2. 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 3. Increase in right maxillary sinus mucosal thickening likely related to the odontogenic infection. ACT 112: Negative or not required by law. Electronically signed by: John Bedoya M.D. 03/01/2021 7:43 PM ECG Additional Comments: ordered, pending Code Status & VTE Plan Code Status full VTE Prophylaxis Plan VTE Prophylaxis will be ordered: Yes Supervising Physician Co-Signing Physician Notes Patient seen and examined, chart reviewed, case discussed with Barbara Slade and I agree with his assessment and plan as above. In brief, patient is a 45yo female with DM presenting with abscess of right infratemporal fossa with mild extension into inferolateral orbit secondary to ongoing odontogenic infection. Patient had been on Clindamycin outpatient. Febrile, tachycardic, leukocytosis on arrival. Significant pain Swelling and tenderness to right face EOMI with no entrapment Labs and images reviewed Assessment/Plan -Flagyl + Ceftriaxone + pain control -Insulin for blood sugar management -Remainder as above Resident Activity Tracking Resident Involvement: Resident Care Provided Care Provided: Adult Hospital Medicine
[2021-03-01] MEDS ORDERED: CARBOHYDRATES FOR HYPOGLYCEMIA PO PRN (22:30)
[2021-03-01] MEDS ORDERED: GLUCOSE 40% GEL 15 GM TUBE PO PRN (22:30)
[2021-03-01] MEDS ORDERED: GLUCAGON FOR INJ 1 MG VIAL SQ PRN (22:30)
[2021-03-01] MEDS ORDERED: GLUCOSE 10 TABS/TUBE PO PRN (22:30)
[2021-03-01] MEDS ORDERED: HEPARIN SODIUM (PORCINE) 5,000 UNITS in SYRINGE 0 ML IV STA (22:30)
[2021-03-01] MEDS ORDERED: DEXTROSE 50% 50 ML SYRINGE IV PRN (22:30)
[2021-03-01] MEDS ORDERED: INSULIN GLARGINE SOLOSTAR 100 UNITS/ML 3 ML PEN SC STA (22:36)
[2021-03-01] MEDS ORDERED: INSULIN ASPART 100 UNITS/ML 3 ML PEN SC STA (22:46)
[2021-03-01] MEDS ORDERED: HEPARIN SOD 5,000 UNIT/0.5 ML VIAL SQ STA (22:48)
[2021-03-01] MEDS: KETOROLAC TROMETHAMINE 15 MG/ML VIAL IV PRN (23:34)
[2021-03-02 01:01] LABS: BUN Creatinine Ratio 9.7 (10-20); Blood Urea Nitrogen 6 mg/dl (7-18); Calcium 8.8 mg/dl (8.5-10.1); Carbon Dioxide 25 mmol/L (21-32); Chloride 101 mmol/L (98-107); Creatinine Clr Calc Pharmacy 134.2 ml/min; Est GFR (African American) 127.3 ml/min; Est GFR (Non-African American) 109.9 ml/min; Glucose 232 mg/dl (70-99); Potassium 4.1 mmol/L (3.5-5.1); Sodium 133 mmol/L (136-145)
[2021-03-02] MEDS: ACETAMINOPHEN 325 MG TAB PO PRN ×2 (01:04→13:54)
[2021-03-02 01:20] LABS: Troponin I < 0.015 ng/ml (0-0.045)
[2021-03-02] MEDS ORDERED: ONDANSETRON INJ 2 MG/ML 2 ML VIAL IV PRN (02:15)
[2021-03-02] MEDS ORDERED: POLYETHYLENE (MIRALAX) 17 GM PACK PO PRN (02:15)
[2021-03-02] MEDS: HYDROmorphone INJ 0.5 MG/0.5 ML SYR IV PRN ×3 (05:11→19:28)
[2021-03-02] MEDS: metroNIDAZOLE 500 MG/100 ML BAG IV SCH ×3 (05:11→21:23)
[2021-03-02 06:03] LABS: Basophils # (auto) 0.03 K/uL (0-0.2); Basophils % (auto) 0.3 %; Eosinophils % (auto) 1.7 %; Hematocrit (blood only) 42.6 % (37-47); Immature Granulocytes # (auto) 0.04 K/uL (0.00-0.02); Immature Granulocytes % (auto) 0.3 %; Lymphocytes # (auto) 3.93 K/uL (1.2-3.4); Lymphocytes % (auto) 34.2 %; Mean Corpuscular Hemoglobin 30.9 pg (25-34); Mean Corpuscular Hgb Conc 35.2 g/dL (32-36); Mean Corpuscular Volume 87.8 fL (80-100); Mean Platelet Volume 9.8 fL (7.4-10.4); Monocytes # (auto) 0.97 K/uL (0.11-0.59); Monocytes % (auto) 8.4 %; Neutrophils # (auto) 6.31 K/uL (1.4-6.5); Neutrophils % (auto) 55.1 %; Platelet Count 327 K/uL (130-400); RDW Coefficient of Variation 13.4 % (11.5-14.5); RDW Standard Deviation 43.4 fL (36.4-46.3); Red Blood Count 4.85 M/uL (4.2-5.4); White Blood Count 11.48 K/uL (4.8-10.8)
[2021-03-02 06:32] LABS: Albumin Level 2.7 gm/dl (3.4-5.0); BUN Creatinine Ratio 10.6 (10-20); Calcium 8.7 mg/dl (8.5-10.1); Creatinine Clr Calc Pharmacy 120.8 ml/min; Est GFR (Non-African American) 106.1 ml/min; Potassium 4.1 mmol/L (3.5-5.1)
[2021-03-02 06:48] LABS: Albumin Globulin Ratio 0.7 (0.9-2); Bilirubin,Total 0.4 mg/dl (0.2-1); Globulin 4.1 gm/dl (2.5-4.0); Total Protein 6.8 gm/dl (6.4-8.2)
--- NOTE | 2021-03-02 07:13 | Billing Data ---
Date of Service March 01, 2021 Coding Level of Care Code 69754 Initial Inpt Care Lvl 2
[2021-03-02 07:24] LABS: Estimated Average Glucose 235 mg/dl; Hemoglobin A1C 9.8 % (4.5-5.6)
--- NOTE | 2021-03-02 07:59 | Hospitalist Progress Note ---
Date of Service March 02, 2021 Assessment & Plan (1) Abscess of infratemporal region: (2) Diabetes: (3) Hyponatremia: (4) Hypertension: Plan: 45 year old female with past medical history of T2DM, HTN, ETOH use disorder, depression, HLD, tobacco use, and CAD admitted for odontogenic abscess infection. Odontogenic abscess infection: - T2DM w/ hyponatremia: - Hypertension: - Admission and Anticipated Discharge Date Admission Date: March 01, 2021 Subjective Patient seen at the bedside this morning. No overnight events. Results & Data Results & Data ([facility]) Vital Signs (Past 12 Hours) Vital Signs Pulse Resp BP Pulse Ox 03/02/21 02:00 96 H 28 H 133/68 92 03/02/21 01:30 87 10 L 113/52 L 91 03/02/21 01:00 99 H 19 107/77 98 03/01/21 23:40 68 19 149/76 H 96 03/01/21 23:00 79 21 148/69 H 93 03/01/21 22:00 88 16 153/97 H 96 03/01/21 21:30 94 H 24 162/92 H 97 03/01/21 21:00 82 14 178/99 H 97 03/01/21 20:01 161/92 H 99
[2021-03-02] MEDS: SODIUM CHLORIDE 0.9% 1000ML 1,000 ML IV SCH ×2 (08:21→15:37)
[2021-03-02] MEDS: KETOROLAC TROMETHAMINE 15 MG/ML VIAL IV PRN ×3 (08:22→22:15)
[2021-03-02] MEDS: INSULIN ASPART 100 UNITS/ML 3 ML PEN SC SCH ×4 (08:32→20:37)
[2021-03-02] MEDS ORDERED: INSULIN GLARGINE SOLOSTAR 100 UNITS/ML 3 ML PEN SC SCH (09:00)
[2021-03-02] MEDS: ASPIRIN 81 MG ECTAB PO SCH (10:52)
[2021-03-02] MEDS: ROSUVASTATIN CALCIUM 20 MG TAB PO SCH (10:53)
[2021-03-02] MEDS: lisinopril 5 MG TAB PO SCH (10:53)
[2021-03-02] MEDS: HEPARIN SOD 5,000 UNIT/0.5 ML VIAL SQ SCH ×2 (10:53→20:30)
[2021-03-02] MEDS ORDERED: PHARMACY GLYCEMIC MGMT CONSULT PRN ×2 (12:15)
[2021-03-02] MEDS ORDERED: INSULIN GLARGINE SOLOSTAR 100 UNITS/ML 3 ML PEN SC STA (12:39)
--- NOTE | 2021-03-02 13:22 | Hospitalist Progress Note ---
Date of Service March 02, 2021 Assessment & Plan (1) Dental infection: Plan: 45 y/o F w/ DM2 and recent multiple ED visits for R upper dental infection that worsened into abscess. (1) Dental infection with facial cellulitis - new 2.5 x 1.3 x 1.1 cm abscess within the right infratemporal fossa w/ mild extension into inferolateral orbit. Failed outpatient PO Clinda x 10d. WBC improved -IV Rocephin 2g daily and IV Flagyl q8h. Penicillin and amox allergy noted. - deferred culture of dental socket - blood cultures pending - No surgical intervestion as per discussion with Dr. Pulliam in AM. - maintenance IV fluids - pain regimen: PO tylenol 650mg q6h PRN, IV toradol 15mg q6h PRN (severe pain)/hydromorphone. PDMP reviewed. (2) Diabetes: A1c 8.0 07/13/20 - BSG 342 in ED, likely 2/2 not taking home metformin today. No anion gap and serum ketones are not elevated. - A1c 9.3 - SSI+Lantus. Holding metformin - Glycemic consult (3) Hyponatremia: - asymptomatic - stable sodium level at 133. (4) CAD/Hypertension: - continue home regimen (5) HLD (hyperlipidemia): - continue home regimen FEN/GI: full liquid diet. NSS 150/hr (maintenance rate) ppx: sq heparin 5000u q12h code: full dispo: med/surg tele covid neg (2) Cellulitis of face: (3) Diabetes: (4) CAD (coronary artery disease): (5) Acute hyperglycemia: (6) Hypertension: (7) Sepsis: Admission and Anticipated Discharge Date Admission Date: March 01, 2021 Subjective No new concerns overnight. continues to have pain unable to open mouth completely. no fever, chest pain, shortness of breath. Physical Exam Constitutional: In distress from facial pain. ENMT: Right side facial swelling. unable to open mouth due to pain and swelling. Respiratory: normal respiratory effort, lungs clear to auscultation Cardiovascular: RRR, no murmur, no edema Results & Data Results & Data ([facility]) Vital Signs (Past 12 Hours) Vital Signs Temp Pulse Pulse Resp BP BP Pulse Ox 03/02/21 12:00 36.8 C 83 18 128/69 95 03/02/21 08:00 37 C 79 18 112/60 93 03/02/21 02:00 96 H 28 H 133/68 92 03/02/21 01:30 87 10 L 113/52 L 91
--- NOTE | 2021-03-02 14:13 | Pharmacy Report ---
Pharmacy Glycemic Short Note 2 - Date of Service March 02, 2021 - Glycemic Short BSG Results (Last 24 hours): 03/01/21 03/01/21 03/02/21 16:00 21:40 00:31 Glucose 342 H* 232 H POC Glucose 185 H 03/02/21 03/02/21 03/02/21 00:56 05:08 07:33 Glucose 299 H POC Glucose 253 H 278 H 03/02/21 11:08 Glucose POC Glucose 297 H OUTPATIENT ANTIDIABETIC REGIMEN: * Metformin 1000mg BID * A1c: 9.8% 03/01/21 ASSESSMENT: * Patient Presenting with a dental infection and hyperglycemia since last evening. * Pt was placed on a low stress novolog/lantus regimen initially. At the time of consult, the BSG was 297mg/dL at lunchtime. 8 units of Lantus had been given this morning. Another 15 units was ordered one time and then increased ongoing orders to start this evening. * Patient is tolerating a diet. Of note, she did eat an ice cream cup at lunch as well. PLAN FOR INPATIENT GLYCEMIC CONTROL: * Hold outpatient oral diabetes medications * Basal insulin * Lantus 8 units this morning + additional 15 units at lunchtime * Lantus 20 units SQ BID starting this evening * Bolus insulin * NovoLog per scale ACHS or Q6hrs while NPO + overnight checks. * Goal Range: Low 110 mg/dL - High 140 mg/dL * Correction Factor: 20 mg/dL/unit * Nutritional / Prandial insulin per carb ratio of 1 unit per 7 grams CHO consumed PLAN FOR DISCHARGE: * TBD
[2021-03-02] MEDS: cefTRIAXone SODIUM 2,000 MG in DEXTROSE 5% 50 ML IV SCH (20:36)
[2021-03-02] MEDS: INSULIN GLARGINE SOLOSTAR 100 UNITS/ML 3 ML PEN SC SCH (20:37)
[2021-03-03] MEDS: INSULIN ASPART 100 UNITS/ML 3 ML PEN SC SCH ×7 (00:04→23:54)
[2021-03-03] MEDS: HYDROmorphone INJ 0.5 MG/0.5 ML SYR IV PRN ×5 (00:09→22:21)
[2021-03-03] MEDS: KETOROLAC TROMETHAMINE 15 MG/ML VIAL IV PRN ×2 (05:46→20:09)
[2021-03-03] MEDS: metroNIDAZOLE 500 MG/100 ML BAG IV SCH ×3 (05:49→21:18)
--- NOTE | 2021-03-03 08:14 | Oral/Maxillofacial Consult ---
Date of Consultation March 03, 2021 Assessment & Plan (1) Odontogenic infection of jaw: (2) Caries involving multiple surfaces of tooth: (3) Dental abscess: History of Present Illness Reason for Consultation: facial infection right infratemporal area Attending Physician: Nilda Aguillon MD History of Present Illness Oral Maxillofacial Surgery Exam Present Complaint: Developed right infratemporal abscess 1 week after I&D for nasolabial abscess in [facility] dental clinic. Oral Exam: Finding- swelling in the right upper muco buccal fold, grossly infected upper teeth. swelling lower right gingival tissue with infected teeth present Non existent oral hygiene swelling right cheek and mental area Imaging: Panorex: The Panorex X Ray was reviewed, there were no abnormal findings other then the carious fractured teeth The TMJ are well positioned and no evidence of bony pathology. The sinus, supporting bone all WNL The following teeth are present # 6,13 upper, 19,20,21,22,23,26,27and 28 grossly infected bone loss CT OF THE NECK WITH IV CONTRAST CLINICAL HISTORY: Right facial pain. Evaluate for abscess. COMPARISON STUDY: Facial CT February 19, 2021. FINDINGS: Visualized portions of the intracranial contents are unremarkable. The parotid and submandibular glands are within normal limits. The epiglottis is normal. Lung apices are clear. Major vasculature of the neck is patent. Severe odontogenic disease is noted. Multiple teeth are absent. There are numerous dental caries and periapical lucencies/abscesses. Of note, there has been interval development of a peripherally enhancing 2.5 x 1.3 x 1.1 cm fluid collection within the right infratemporal fossa since CT of February 19, 2021. There is mild extension into the inferolateral aspect of the right orbit. No intraorbital abscess is present. No additional fluid collections are present. There is no soft tissue gas. No bony destruction is present. Moderate mucosal thickening of the right maxillary sinus has increased. This is likely related to the odontogenic infection. IMPRESSION: 1. Interval development of a 2.5 x 1.3 x 1.1 cm abscess within the right infratemporal fossa since CT of February 19, 2021. This is likely odontogenic in etiology. Mild extension into the inferolateral aspect of the right orbit, as described above. ENT consultation is recommended. Findings discussed with Dr. Zepeda at time of dictation. 2. 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 3. Increase in right maxillary sinus mucosal thickening likely related to the odontogenic infection. Soft tissue: floor of the mouth, tongue, hard/soft palate, posterior pharyngeal area all with in normal limits, no pathology or abnormal findings noted. All swelling from abscess right side infratemporal area Painful swelling right mucobuccal fold and mental area of chin, carious teeth. Temporal swelling Oral Care: Overall oral care is very poor Occlusion: Class I with missing and drifted fractured and decayed teeth TMJ exam: No pop, clicking, pain, good ROM, No history of TMJ injury or dysfunction Periodontal exam: significant evidence of periodontal pathology. Head/Neck exam: Neck is supple, FROM, Able to extend and flex neck w/o difficulty, no masses, no abnormalities, no airway issues, + evidence of sleep apnea. slight swelling submental area and upper right infratemporal fossa area Treatment Plan: I reviewed the CT scan and did a clinical exam exam I&D and extraction of infected teeth is needed Set up with general anesthesia in hospital due to complexity of the procedure I reviewed the treatment plan and consent with the patient. Understanding was expressed. Time was given for questions regarding the surgery, risks and post op care. Discussed alternative to treatment-NONE Risks discussed: Bleeding,Pain,swelling,infection, dry socket, delayed healing, nerve injury to face,lips,tongue,chin area which could be permanent (rare). TMJ, jaw stiffness, change in bite (rare), ear pain (referred). Sinus problems like fistula or infection. Need to leave a small root fragment in place to avoid injury to nerve or sinus. Drainage tube, continued swelling and infection. Home care reviewed:, follow up care with Dr Kerns at [facility] dental clinic diet=[id number] dental. Discussed activity level, driving/work while on Rx pain Meds. [facility] will need to place her on the denture list once fully healed Surgery to be set up [facility] Allergies Allergy/AdvReac Type Severity Reaction Status Date / Time amoxicillin Allergy Intermediate Hives and Verified 03/01/21 18:06 shortness of breath Penicillins Allergy Intermediate Hives and Verified 03/01/21 18:06 shortness of breath Home Medications Medication Instructions Recorded Confirmed Type multivitamin (Daily Multi-Vitamin) 1 tab PO QAM 08/06/19 03/01/21 History omeprazole 20 mg capsule,delayed 40 mg PO BID 11/26/19 03/01/21 History release metformin 500 mg tablet,extended 1,000 mg PO BID 02/25/20 03/01/21 History release 24 hr aspirin 81 mg tablet,delayed 81 mg PO QAM 02/03/21 03/01/21 History release (Aspirin Low Dose) lisinopril 5 mg tablet (Zestril) 5 mg PO QAM 02/03/21 03/01/21 History rosuvastatin 20 mg tablet (Crestor) 20 mg PO QAM 02/03/21 03/01/21 History oxycodone 5 mg tablet 5 mg PO Q4H PRN #15 tab 02/18/21 03/01/21 Rx Saccharomyces boulardii 250 mg 250 mg PO BID #20 cap 02/19/21 03/01/21 Rx capsule (Florastor) Pill Form Of Trulicity 1 dose PO DIRECTED 03/01/21 03/01/21 History Patient History Medical History (Updated 03/03/21 @ 08:34 by Peyman Kerns DMD) Diabetes mellitus, type 2 HLD (hyperlipidemia) Hx of bronchitis Hypertension No significant family history Osteoarthritis Peripheral neuropathy Surgical History History of appendectomy History of section X 1 History of tonsillectomy and adenoidectomy [place] teeth removed Family History Brother Family history of diabetes mellitus Grandmother (Maternal) Family history of diabetes mellitus Social History Smoking Status: Current every day smoker Tobacco Type: Cigarettes Cigarettes Per Day: 10-20 DAILY; Second Hand Exposure: Yes; Tobacco Cessation Education Requested by Patient: No Hx Alcohol Use: No Hx Substance Use: No Preferred Language: Irish Communication Ability: Effective Braille Operator Required: No Beliefs That Will Affect Care: None marital status: Current Living Situation: Spouse and Family Feels Safe at Home: Yes Safety Concerns: Feels Safe At This Time Assistive Devices: None Results & Data ([place]) Vital Signs (Past 12 Hours) Vital Signs Temp Pulse Pulse Resp BP Pulse Ox 03/03/21 07:41 58 L 10/22/21 07:21 36.9 C 74 18 129/71 95 03/03/21 03:00 37.0 C 74 20 110/65 97 03/02/21 23:16 36.5 C 66 20 134/87 97 03/02/21 22:19 78 PG Care Time/CCT Total # of Minutes Spent Total Time Spent with Patient: Total time spent is greater than 50% in coordination of care (as documented) at patient's floor/unit and/or counseling patient: Coding Level of Care Code 57596 Inpt Consult Level 2 Diagnoses Odontogenic infection of jaw M27.2 Caries involving multiple surfaces of tooth K02.9 Dental abscess K04.7
[2021-03-03] MEDS ORDERED: INSULIN GLARGINE SOLOSTAR 100 UNITS/ML 3 ML PEN SC ONE (09:15)
[2021-03-03] MEDS: ASPIRIN 81 MG ECTAB PO SCH (09:16)
[2021-03-03] MEDS: lisinopril 5 MG TAB PO SCH (09:16)
[2021-03-03] MEDS: HEPARIN SOD 5,000 UNIT/0.5 ML VIAL SQ SCH ×2 (09:16→20:13)
[2021-03-03] MEDS: ROSUVASTATIN CALCIUM 20 MG TAB PO SCH (09:17)
--- NOTE | 2021-03-03 09:48 | Electrocardiogram Report ---
Test Reason : Blood Pressure : / mmHG Vent. Rate : 066 BPM Atrial Rate : 066 BPM P-R Int : 116 ms QRS Dur : 094 ms QT Int : 364 ms P-R-T Axes : 046 069 050 degrees QTc Int : 381 ms Normal sinus rhythm Normal ECG When compared with ECG of 03-FEB-2021 06:44, No significant change was found Confirmed by Jose Knight ([id number]) on 03/03/2021 9:47:30 AM Referred By: REFERRED SELF Confirmed By:Jose Knight
--- NOTE | 2021-03-03 13:20 | Pharmacy Report ---
Pharmacy Glycemic Short Note 2 - Date of Service March 03, 2021 - Glycemic Short BSG Results (Last 24 hours): 03/02/21 03/02/21 03/02/21 16:45 20:25 23:59 POC Glucose 162 H 218 H 183 H 03/03/21 03/03/21 03/03/21 03:34 07:29 11:40 POC Glucose 194 H 216 H 224 H OUTPATIENT ANTIDIABETIC REGIMEN: * Metformin 1000mg BID * A1c: 9.8% 03/01/21 ASSESSMENT: 03/03: * Patient received total of 89 units of insulin yesterday; 43 units basal + 46 units bolus. * Fasting BSG was 216 mg/dl today. Lantus dose this AM was reduced slightly to 15 units since pt was NPO for OR today for I&D/ removal of infected teeth. Resumed Lantus BID dose starting tonight the same as yesterday. * Novolog correction factor tightened with dinner BSG today. CR continued the same. 03/02/21: * Patient Presenting with a dental infection and hyperglycemia since last evening. * Pt was placed on a low stress novolog/lantus regimen initially. At the time of consult, the BSG was 297mg/dL at lunchtime. 8 units of Lantus had been given this morning. Another 15 units was ordered one time and then increased ongoing orders to start this evening. * Patient is tolerating a diet. Of note, she did eat an ice cream cup at lunch as well. PLAN FOR INPATIENT GLYCEMIC CONTROL: * Hold outpatient oral diabetes medications * Basal insulin * Lantus 15 units this morning since patient was NPO. * Resumed 20 units BID starting tonight. * Bolus insulin: tightened CF * NovoLog per scale ACHS or Q6hrs while NPO + overnight checks. * Goal Range: Low 110 mg/dL - High 140 mg/dL * Correction Factor: 15 mg/dL/unit * Nutritional / Prandial insulin per carb ratio of 1 unit per 7 grams CHO consumed PLAN FOR DISCHARGE: * TBD
--- NOTE | 2021-03-03 14:29 | Anesthesiology Consultation ---
Date of Service March 03, 2021 Assessment & Plan (1) Encounter for pre-operative examination: Chart Review Chart Review: Acceptable Risk for Surgery and Patient NOT seen in Pre Admission Testing covid neg 03/01/21 Consults Requested none History Surgery Operation Date: 03/03/21 09:50 Proposed Procedures p Drainage of Right Facial Abscess - Peyman Kerns DMD s Removal of Multiple Teeth - Peyman Kerns DMD Height/Weight Height: 5 ft 1 in Weight: 115.6 kg Allergies Allergy/AdvReac Type Severity Reaction Status Date / Time amoxicillin Allergy Intermediate Hives and Verified 03/01/21 18:06 shortness of breath Penicillins Allergy Intermediate Hives and Verified 03/01/21 18:06 shortness of breath Medications Home Medications Medication Instructions Recorded Confirmed Last Taken multivitamin (Daily Multi-Vitamin) 1 tab PO QAM 08/06/19 03/01/21 03/01/21 omeprazole 20 mg capsule,delayed 40 mg PO BID 11/26/19 03/01/21 03/01/21 08:00 release metformin 500 mg tablet,extended 1,000 mg PO BID 02/25/20 03/01/21 03/01/21 08:00 release 24 hr aspirin 81 mg tablet,delayed 81 mg PO QAM 02/03/21 03/01/21 03/01/21 release (Aspirin Low Dose) lisinopril 5 mg tablet (Zestril) 5 mg PO QAM 02/03/21 03/01/21 03/01/21 rosuvastatin 20 mg tablet (Crestor) 20 mg PO QAM 02/03/21 03/01/21 03/01/21 oxycodone 5 mg tablet 5 mg PO Q4H PRN #15 tab 02/18/21 03/01/21 Unknown Saccharomyces boulardii 250 mg 250 mg PO BID #20 cap 02/19/21 03/01/21 03/01/21 08:00 capsule (Florastor) Pill Form Of Trulicity 1 dose PO DIRECTED 03/01/21 03/01/21 03/01/21 Active Medications Generic Name Dose Route Start Last Admin Trade Name Freq PRN Reason Stop Dose Admin Acetaminophen 650 mg 03/01/21 22:30 03/02/21 13:54 Acetaminophen 325 Mg Tab PO 03/31/21 22:29 650 mg Q6H PRN Administration Pain Aspirin 81 mg 03/02/21 09:00 03/03/21 09:16 Aspirin 81 Mg Ectab PO 04/01/21 08:59 Not Given QAM [facility] Heparin Sodium (Porcine) 5,000 units 03/02/21 09:00 03/03/21 09:16 Heparin Sod 5,000 Unit/0.5 Ml Vial SQ 04/01/21 08:59 Not Given Q12 [facility] Hydromorphone HCl 0.5 mg 03/02/21 02:15 03/03/21 03:10 Hydromorphone Inj 0.5 Mg/0.5 Ml Syr IV 03/16/21 02:14 0.5 mg Q3H PRN Administration severe pain -02/19 Ceftriaxone Sodium 2,000 mg/ 70 mls @ 100 mls/hr 03/02/21 20:00 03/02/21 2 1:23 Dextrose IV 03/09/21 19:59 Infused Q24H [facility] Infusion Protocol Metronidazole 500 mg in 100 mls @ 100 mls/hr 03/02/21 05:00 03/03/21 14:06 Flagyl IV 03/09/21 04:59 Infused Q8H [facility] Infusion Insulin Aspart 0 units 03/02/21 07:30 03/03/21 12:33 Insulin Aspart 100 Units/Ml 3 Ml Pen SC 04/01/21 07:29 5 units ACHS [facility] Administration Insulin Glargine 20 units 03/02/21 21:00 03/02/21 20:37 Insulin Glargine Solostar 100 Units/Ml 3 Ml Pen SC 04/01/21 20:59 20 units BID LETY Administration Ketorolac Tromethamine 15 mg 03/01/21 22:30 03/03/21 05:46 Ketorolac Tromethamine 15 Mg/Ml Vial IV 03/06/21 22:29 15 mg Q6H PRN Administration Pain Lisinopril 5 mg 03/02/21 09:00 03/03/21 09:16 Lisinopril 5 Mg Tab PO 04/01/21 08:59 Not Given QAM [facility] Rosuvastatin Calcium 20 mg 03/02/21 09:00 03/03/21 09:17 Rosuvastatin Calcium 20 Mg Tab PO 04/01/21 08:59 Not Given QAM [facility] NPO Date Last Intake of Fluids: 03/03/21 Time Last Intake of Fluids: 07:00 Date Last Intake of Solids: 03/02/21 Time Last Intake of Solids: 23:00 Past Medical History Medical History (Updated 03/03/21 @ 14:30 by Yves Hewitt MD) Diabetes mellitus, type 2 Encounter for pre-operative examination HLD (hyperlipidemia) Hx of bronchitis Hypertension No significant family history Osteoarthritis Peripheral neuropathy Exercise / Class Metabolic Activity II 4-5 Yardwork/Stairs/Walk up hill Past Family History Family History Brother Family history of diabetes mellitus Grandmother (Maternal) Family history of diabetes mellitus Past Surgical History Surgical History History of appendectomy History of section X 1 History of tonsillectomy and adenoidectomy [place] teeth removed Social History Smoking Status: Current every day smoker tobacco type: cigarettes Smoking cigarettes per day: 10-20 DAILY Hx Alcohol Use: No Hx Substance Use: No substance use type: marijuana Last Used Substance Other:: LAST USED 2-3 WEEKS (ADVISED) Physical Exam Vital Signs Last Vital Signs Temp 36.7 C 03/03/21 15:32 Pulse 82 03/03/21 15:32 Resp 18 03/03/21 15:32 BP 122/72 03/03/21 15:32 Pulse Ox 96 03/03/21 15:32 Testing Laboratory Results 03/02/21 05:08 03/02/21 05:08 Hemoglobin A1c 9.8 % (4.5-5.6) H 03/01/21 17:01 03/01/21 19:01 Aerobic Blood Culture - Preliminary Blood No growth in Aerobic bottle after 24 hours. Anaerobic Blood Culture - Final 03/01/21 19:01 Aerobic Blood Culture - Preliminary Blood No growth in Aerobic bottle after 24 hours. Anaerobic Blood Culture - Preliminary No growth in Anaerobic bottle after 24 hours. 03/03/21 03/03/21 11:40 07:29 POC Glucose 224 H 216 H Electrocardiogram Date: 03/02/21 DICTATED BY: Jose Knight MD Test Reason : Blood Pressure : / mmHG Vent. Rate : 066 BPM Atrial Rate : 066 BPM P-R Int : 116 ms QRS Dur : 094 ms QT Int : 364 ms P-R-T Axes : 046 069 050 degrees QTc Int : 381 ms Normal sinus rhythm Normal ECG When compared with ECG of 03-FEB-2021 06:44, No significant change was found Confirmed by Jose Knight ([id number]) on 03/03/2021 9:47:30 AM Referred By: REFERRED SELF Confirmed By:Jose Valencia Other Testing FINDINGS: Visualized portions of the intracranial contents are unremarkable. The parotid and submandibular glands are within normal limits. The epiglottis is normal. Lung apices are clear. Major vasculature of the neck is patent. Severe odontogenic disease is noted. Multiple teeth are absent. There are numerous dental caries and periapical lucencies/abscesses. Of note, there has been interval development of a peripherally enhancing 2.5 x 1.3 x 1.1 cm fluid collection within the right infratemporal fossa since CT of February 19, 2021. There is mild extension into the inferolateral aspect of the right orbit. No intraorbital abscess is present. No additional fluid collections are present. There is no soft tissue gas. No bony destruction is present. Moderate mucosal thickening of the right maxillary sinus has increased. This is likely related to the odontogenic infection. IMPRESSION: 1. Interval development of a 2.5 x 1.3 x 1.1 cm abscess within the right infratemporal fossa since CT of February 19, 2021. This is likely odontogenic in etiology. Mild extension into the inferolateral aspect of the right orbit, as described above. ENT consultation is recommended. Findings discussed with Dr. Zepeda at time of dictation. 2. 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 3. Increase in right maxillary sinus mucosal thickening likely related to the odontogenic infection.
[2021-03-03] MEDS ORDERED: ONDANSETRON INJ 2 MG/ML 2 ML VIAL ONE ×2 (14:53→17:26)
[2021-03-03] MEDS ORDERED: ROCURONIUM BROMIDE 10 MG/ML 5 ML VIAL IV ONE (14:53)
[2021-03-03] MEDS ORDERED: DEXAMETHASONE SOD INJ 4 MG/ML VIAL ONE (14:53)
[2021-03-03] MEDS ORDERED: PROPOFOL IV EMULSION 10 MG/ML 20 ML VIAL IV ONE ×3 (14:53→17:25)
[2021-03-03] MEDS ORDERED: LIDOCAINE 2% 2 ML VIAL/AMP(20MG/ML) INFIL ONE (14:53)
[2021-03-03] MEDS ORDERED: fentaNYL citrate 100 MCG/2 ML VIAL ONE ×3 (14:54→17:01)
[2021-03-03] MEDS ORDERED: MIDAZOLAM HCL 1 MG/ML 2ML VIAL ONE (14:54)
[2021-03-03] MEDS ORDERED: BUPIVACAINE/EPINEPHRINE 0.5% 1:200,000 1.8 ML CARP ONE ×2 (15:21→17:13)
[2021-03-03] MEDS ORDERED: CHLORHEXIDINE GLUCONATE 0.12% 480 ML ONE (15:22)
[2021-03-03] MEDS ORDERED: OXYMETAZOLINE 0.05% 30 ML BTL ONE (16:01)
--- NOTE | 2021-03-03 16:01 | History & Physical Bridge Note ---
Date of Service March 03, 2021 History & Physical Bridge Note I have examined the patient, reviewed the History & Physical and in the interval since the performance of the History & Physical I have noted the following changes of clinical significance: no changes noted plan I&D with extractions
[2021-03-03] MEDS ORDERED: ePHEDrine sulfate 50 MG/ML AMP IV PRN (16:06)
[2021-03-03] MEDS ORDERED: ONDANSETRON INJ 2 MG/ML 2 ML VIAL IV PRN (16:06)
[2021-03-03] MEDS ORDERED: HYDROmorphone INJ 1 MG/ML SYRINGE IV PRN (16:06)
[2021-03-03] MEDS ORDERED: PROMETHAZINE HCL 6.25 MG in SODIUM CHLORIDE 0.9% 50 ML IV PRN (16:06)
[2021-03-03] MEDS ORDERED: ATROPINE SULFATE 0.1 MG/ML 10ML SYR IV PRN (16:06)
[2021-03-03] MEDS ORDERED: EPINEPHrine HCL INJ 1 MG/ML 30ML ONE (16:43)
--- NOTE | 2021-03-03 16:53 | Hospitalist Progress Note ---
Date of Service March 03, 2021 Assessment & Plan (1) Dental infection: Plan: 45 y/o F w/ DM2 and recent multiple ED visits for R upper dental infection that worsened into abscess. (1) Dental infection with facial cellulitis - new 2.5 x 1.3 x 1.1 cm abscess within the right infratemporal fossa w/ mild extension into inferolateral orbit. Failed outpatient PO Clinda x 10d. -IV Rocephin 2g daily and IV Flagyl q8h. Penicillin and amox allergy noted. - blood cultures neg - Oral surgery consulted - for OR today - pain regimen: PO tylenol 650mg q6h PRN, IV toradol 15mg q6h PRN (severe pain)/hydromorphone. PDMP reviewed. (2) Diabetes: A1c 8.0 07/13/20 - BSG 342 in ED, likely 2/2 not taking home metformin today. No anion gap and serum ketones are not elevated. - A1c 9.3 - SSI+Lantus. Holding metformin - Glycemic consult (3) Hyponatremia: - asymptomatic - stable sodium level at 133. (4) CAD/Hypertension: - continue home regimen (5) HLD (hyperlipidemia): - continue home regimen FEN/GI: full liquid diet. d/c IVF ppx: sq heparin 5000u q12h code: full dispo: med/surg tele covid neg (2) Cellulitis of face: (3) Diabetes: (4) CAD (coronary artery disease): (5) Acute hyperglycemia: (6) Hypertension: (7) Sepsis: Admission and Anticipated Discharge Date Admission Date: March 01, 2021 Subjective No new events overnight. continues to have facial pain. no fever. no chest pain, short of breath seen by oral surgery. Physical Exam Constitutional: WD/WN, vitals as above ENMT: facial swelling + Respiratory: No respiratory distress Cardiovascular: Normal HR Psychiatric: A+Ox3, euthymic affect Results & Data Results & Data ([facility]) Vital Signs (Past 12 Hours) Vital Signs Temp Pulse Pulse Resp BP BP Pulse Ox 03/03/21 15:57 36.8 C 82 20 133/67 97 03/03/21 15:32 36.7 C 82 18 122/72 96 03/03/21 15:00 61 03/03/21 11:35 36.8 C 87 20 144/75 H 03/03/21 07:41 58 L 03/03/21 07:21 36.9 C 74 18 129/71 95
[2021-03-03] MEDS ORDERED: HYDROmorphone INJ 2 MG/ML SYR/VIAL ONE (17:10)
[2021-03-03] MEDS ORDERED: CHLORHEXIDINE GLUCONATE 0.12% 480 ML MT PRN (17:58)
--- NOTE | 2021-03-03 18:08 | Operative Report ---
PG Post Operative Report Pre & Post Diagnosis Operation Date: 03/03/21 09:50 Pre-Op Diagnosis: (1) Odontogenic infection of jaw: infratemporal and pterygomaxillary fossa infection (2) Caries involving multiple surfaces of tooth: (3) Dental abscess: Post-Op Diagnosis: (1) Odontogenic infection of jaw: infratemporal and pterygomaxillary fossa infection (2) Caries involving multiple surfaces of tooth: (3) Dental abscess: I identified the patient and participated in the time-out.: Yes Procedure Operation Date: 03/03/21 09:50 Actual Procedures p Drainage of Right Facial Abscess infratemporal and pterygomaxillary fossa infection- Peyman Kerns DMD s Removal of Multiple Teeth: 11, 13, 19, 20, 21, 22, 23, 26, 27, 28 - Peyman Kerns DMD Surgeon Peyman Kerns DMD Design Drafter Chief none Estimated Blood Loss 10 Findings Consistent with Post-Op Diagnosis significant right infratemporal space abscess and grossly carious teeth Drainage of Right Facial Abscess infratemporal and pterygomaxillary fossa infe ction Specimens C & S from right space infection Drains 1/2 Santy right infratemporal space Anesthesia Type General Complications none Description of Procedure Coding CPT 87505 Drainage of Right Facial Abscess infratemporal and pterygomaxillary fossa infection ICD 10 K12.2 Actual Procedures Drainage of Right Facial Abscess infratemporal and pterygomaxillary fossa infection p Incision and Drainage right infratemporal space and mental space Abscess; Removal of multi carious infected teeth (Not Applicable) - Peyman Kerns DMD After a complete H&P/ vital signs and oral exam was completed the patient was ready for the surgical procedure. Informed consent was reviewed and the consent form was signed. I gave them time to discuss any questions and if I explained the surgery that I will be performing to their understanding. Once cleared for surgery general anesthesia was achieved, the eyes were protected by the anesthesia dept criteria. A time out was take for patient ID, antibiotics, equipment and position verification once all agreed the procedure began. Local anesthesia using Marcaine with a vasoconstrictor ( 1.8 ml per site) given into right and left inferior alveolar nerves and the entire maxilla. A throat pack was placed after the oral cavity was irrigated with saline. Once a surgical level of anesthesia was obtained and the local anesthesia was given time for the blocks the surgery was started. I turned my attention to the infection which was located in the right infratemporal space and submental area. The tongue was elevated and there was also swelling associated with lower anterior teeth as well as gross distortion of the mucobuccal fold upper right side Incision and Drainage Drainage of Right Facial Abscess infratemporal and pterygomaxillary fossa infection Using a 15 blade an incision was made lateral to the alveolar ridge in the posterior maxillary mucobuccal fold. The tissue was very swollen and fluctuant. Once the incision was made some pus extruded from the site. I now reflected the tissue to expose the lateral maxilla, the bone was very thin and through the open dental sockets I was able to suction out the sinus. I now used a hemostat and staying on the lateral bone I advanced the hemostat into the infratemporal a nd pterygomaxillary fossa posterior to the maxillary sinus. This drainage was cultured for anaerobic and aerobic bacteria. A curved hemostat was carefully placed into the infected space along the lateral posterior maxilla and with careful advancement I entered into the infratemporal fossa and pterygomaxillary fossa space -- a significant about of pus (10ml) extruded from this site. I continued to advance the hemostat and opened up adjacent pockets of infection. I now turned the hemostat and went superior into the temporal space . More very thick pus extruded from all of the openings. I palpated the cheek and temporal area no further pus extruded. The area was irrigated with at least 200 ml of NS solution. I now made an incision over the ridge and removed retained roots and curetted the bone free of all granulation tissue. The bone was adjusted and the gingival tissue closed with a 2-0 chromic. I now advanced a 1/2 inch Santy drain into the most posterior superior aspect of the drained infrtemporal space and secured it into place with 2 2-0 chromic sutures. On the lower jaw there was swelling associated with the infected anterior teeth. The fluctuant tissue was incised with a 15 blade to allow evacuation of the infection. I palpated the chin and submental area and no further drainage was expressed. The area was irrigated with at least 100 ml of NS solution. I now turned my attention to remove the grossly decayed infected teeth. Problem: Pain,swelling located---upper right side and lower teeth Finding: There is a carious, fractured and infected tooth at site#:retained root # 3 area +11, 13, 19, 20, 21, 22, 23, 26, 27, 28 Plan: Surgical removal of the following teeth: 11, 13, 19, 20, 21, 22, 23, 26, 27, 28, retained root # 2 Procedure report: Now using a periosteal elevator the tissue was reflected to expose the alveolar bone. The rongeur was used to remove bone to allow the forceps to engage solid tooth structure. Using a controlled force the tooth was extracted in the standard manner. Once removed the roots were inspected and the socket was curetted. The following teeth were removed: 11, 13, 19, 20, 21, 22, 23, 26, 27, 28, retained root # 2 Sutures used:2-0 chromic A gauze pressure pack was placed over the socket When all the teeth were removed and the drain placed I inspected the sites to insure all bleeding was controlled. There was still some nasal oozing from the anesthesia intubation--I irrigated the nose and placed a Alejandro rocket into the right nostril and once the nasal tube removed I placed one into the left nostril nasal bleeding was now controlled. I removed the throat pack and suctioned the throat. An OG tube was passed. All instrument and sponge count was correct. the patient was allowed to awake from the anesthesia. Once full awake the anesthesia tube was removed and the patient was taken to the recovery room with all vital sign stable. The patient tolerated the surgery very well. I will follow the patient in my office, Rx and instructions will be given upon discharge. Surgeon: Peyman Kerns [facility] Oral Maxillofacial Surgery [facility] I attest to the content of the Intraoperative Record and any orders documented therein. Any exceptions are noted below.
[2021-03-03] MEDS ORDERED: MEPERIDINE HCL 25 MG/ML CARP/VIAL IV PRN (18:15)
[2021-03-03] MEDS ORDERED: MEPERIDINE HCL 50 MG/ML CARP ONE (18:20)
[2021-03-03] MEDS ORDERED: LABETALOL HCL IV 5 MG/ML 20ML IV ONE (18:23)
[2021-03-03] MEDS ORDERED: MEPERIDINE HCL 25 MG/ML CARP/VIAL ONE (18:23)
[2021-03-03] MEDS: LABETALOL HCL IV 5 MG/ML 20ML IV PRN ×2 (18:28→18:39)
[2021-03-03] MEDS: fentaNYL citrate 100 MCG/2 ML VIAL IV PRN ×2 (18:35→18:40)
--- NOTE | 2021-03-03 18:54 | Anesthesiology Progress Note ---
Date of Service March 03, 2021 Anesthesia Post Procedure Vital Signs Vital Signs: Temp Pulse Pulse Pulse Resp BP BP 03/03/21 18:35 73 21 175/87 H 03/03/21 18:25 89 14 175/88 H 03/03/21 18:15 91 H 91 H 202/97 H 03/03/21 18:05 36.1 C L 94 H 16 193/98 H 03/03/21 15:57 36.8 C 82 20 133/67 03/03/21 15:32 36.7 C 82 18 122/72 03/03/21 15:00 61 03/03/21 11:35 36.8 C 87 20 144/75 H 03/03/21 07:41 58 L 03/03/21 07:21 36.9 C 74 18 129/71 03/03/21 03:00 37.0 C 74 20 110/65 03/02/21 23:16 36.5 C 66 20 134/87 03/02/21 22:19 78 03/02/21 19:15 36.6 C 79 20 97/57 L Pulse Ox 03/03/21 18:35 97 03/03/21 18:25 99 03/03/21 18:15 100 03/03/21 18:05 97 03/03/21 15:57 97 03/03/21 15:32 96 03/03/21 15:00 03/03/21 11:35 03/03/21 07:41 03/03/21 07:21 95 03/03/21 03:00 97 03/02/21 23:16 97 03/02/21 22:19 03/02/21 19:15 96 Pain Intensity Right Upper Teeth: Pain Intensity: 2 Transfer of Care Handoff Completed per policy Notes Mental Status: alert / awake / arousable and participated in evaluation Patient Amnestic to Procedure: Yes Nausea / Vomiting: adequately controlled Pain: adequately controlled Airway Patency, RR, SpO2: stable & adequate BP & HR: stable & adequate Hydration State: stable & adequate Anesthetic Complications: no major complications apparent and Pt Satisfied with anesthetic care Notes: At end of procedure, surgeon had placed small nasal packing. No overt bleeding noted. Packing to be managed by surgical team and currently patient is resting, BP better controlled after receiving two doses of labetalol and she is ok for transfer back to floor.
[2021-03-03] MEDS: cefTRIAXone SODIUM 2,000 MG in DEXTROSE 5% 50 ML IV SCH (20:13)
[2021-03-03] MEDS ORDERED: HYDROmorphone INJ 0.5 MG/0.5 ML SYR IV STA ×2 (21:15→23:30)
[2021-03-03] MEDS: INSULIN GLARGINE SOLOSTAR 100 UNITS/ML 3 ML PEN SC SCH (21:17)
[2021-03-04] MEDS: HYDROmorphone INJ 0.5 MG/0.5 ML SYR IV PRN ×3 (01:52→09:40)
[2021-03-04] MEDS: metroNIDAZOLE 500 MG/100 ML BAG IV SCH (04:08)
[2021-03-04] MEDS: INSULIN ASPART 100 UNITS/ML 3 ML PEN SC SCH ×2 (04:13→09:42)
[2021-03-04] MEDS: KETOROLAC TROMETHAMINE 15 MG/ML VIAL IV PRN (06:30)
[2021-03-04 07:45] LABS: Basophils # (auto) 0.02 K/uL (0-0.2); Basophils % (auto) 0.2 %; Eosinophils # (auto) 0.11 K/uL (0-0.5); Eosinophils % (auto) 0.9 %; Hematocrit (blood only) 39.7 % (37-47); Hemoglobin 13.9 g/dL (12.0-16.0); Immature Granulocytes # (auto) 0.03 K/uL (0.00-0.02); Immature Granulocytes % (auto) 0.3 %; Lymphocytes # (auto) 2.56 K/uL (1.2-3.4); Lymphocytes % (auto) 21.5 %; Mean Corpuscular Hemoglobin 30.7 pg (25-34); Mean Corpuscular Volume 87.6 fL (80-100); Mean Platelet Volume 9.5 fL (7.4-10.4); Monocytes # (auto) 0.77 K/uL (0.11-0.59); Monocytes % (auto) 6.5 %; Neutrophils # (auto) 8.39 K/uL (1.4-6.5); Neutrophils % (auto) 70.6 %; Platelet Count 317 K/uL (130-400); RDW Coefficient of Variation 13.2 % (11.5-14.5); RDW Standard Deviation 42.3 fL (36.4-46.3); Red Blood Count 4.53 M/uL (4.2-5.4); White Blood Count 11.88 K/uL (4.8-10.8)
[2021-03-04 08:18] LABS: BUN Creatinine Ratio 9.8 (10-20); Calcium 8.9 mg/dl (8.5-10.1); Creatinine Clr Calc Pharmacy 168.2 ml/min; Est GFR (African American) 136.5 ml/min; Est GFR (Non-African American) 117.8 ml/min; Potassium 3.8 mmol/L (3.5-5.1)
--- NOTE | 2021-03-04 08:45 | Oral/Maxillofacial Progress Nt ---
Date of Service March 04, 2021 Assessment & Plan Admission and Anticipated Discharge Date Admission Date: March 01, 2021 Subjective Post Op infection evaluation at 12 hrs post op The infected area is now very well drained. Swelling is much less and the tissue is responding very well to the I&D and antibiotics Minimal drainage is noted this AM Drain will be removed in my office on Mar 07 at 3:30 pm I removed the bilateral nasal packings--no further nasal bleeding Cultures pending Infection has responded very well to the antibiotics and the I and D. The extraction sites are healing well. I requested that the patient continue with massage, heat and wound care. At this time the infection has responded well to treatment. I will order Oral antibiotics=Keflex 500 TID and Clindamycin 300 BID for next 7- 10 days and I will follow Follow up SaturdayMar 07 at 3:30 for drain removal and post op check [address] SANCHES for D/C from oral surgery point of view Hospital medicine to discuss out patient care Results & Data ([facility]) Vital Signs (Past 12 Hours) Vital Signs Temp Pulse Pulse Resp BP Pulse Ox 03/04/21 08:04 36.8 C 69 18 122/68 95 03/04/21 04:06 36.4 C L 67 18 164/77 H 97 03/03/21 23:00 37.0 C 80 20 149/74 H 91 03/03/21 22:20 81 PG Care Time/CCT Total # of Minutes Spent Total Time Spent with Patient: Total time spent is greater than 50% in coordination of care (as documented) at patient's floor/unit and/or counseling patient: Coding Level of Care Code None
[2021-03-04] MEDS ORDERED: INSULIN GLARGINE SOLOSTAR 100 UNITS/ML 3 ML PEN SC SCH (09:00)
[2021-03-04] MEDS: HEPARIN SOD 5,000 UNIT/0.5 ML VIAL SQ SCH (09:37)
[2021-03-04] MEDS: ASPIRIN 81 MG ECTAB PO SCH (09:38)
[2021-03-04] MEDS: ACETAMINOPHEN 325 MG TAB PO PRN (09:38)
[2021-03-04] MEDS: ROSUVASTATIN CALCIUM 20 MG TAB PO SCH (09:39)
[2021-03-04] MEDS: lisinopril 5 MG TAB PO SCH (09:39)
--- NOTE | 2021-03-04 10:24 | Pharmacy Report ---
Pharmacy Glycemic Short Note 2 - Date of Service March 04, 2021 - Glycemic Short BSG Results (Last 24 hours): 03/03/21 03/03/21 03/03/21 11:40 16:08 18:07 Glucose POC Glucose 224 H 207 H 220 H 03/03/21 03/03/21 03/03/21 20:50 20:52 23:45 Glucose POC Glucose 318 H* 327 H* 323 H* 03/03/21 03/04/21 03/04/21 23:47 04:12 06:53 Glucose 208 H POC Glucose 307 H* 235 H 03/04/21 07:43 Glucose POC Glucose 187 H OUTPATIENT ANTIDIABETIC REGIMEN: * Metformin 1000mg BID * A1c: 9.8% 03/01/21 ASSESSMENT: 03/04: * Pt received total 73 units yesterday; 35 units basal + 38 units bolus. * BSG went up to 318 mg/dl last night due to pt going to OR and not receiving correctional insulin at dinner time when the BSG was above 200 mg/dl. * Fasting BSG = 187 mg/dl today. Basal dosing increased. Novolog parameters tightened. 03/03: * Patient received total of 89 units of insulin yesterday; 43 units basal + 46 units bolus. * Fasting BSG was 216 mg/dl today. Lantus dose this AM was reduced slightly to 15 units since pt was NPO for OR today for I&D/ removal of infected teeth. Resumed Lantus BID dose starting tonight the same as yesterday. * Novolog correction factor tightened with dinner BSG today. CR continued the same. 03/02/21: * Patient Presenting with a dental infection and hyperglycemia since last evening. * Pt was placed on a low stress novolog/lantus regimen initially. At the time of consult, the BSG was 297mg/dL at lunchtime. 8 units of Lantus had been given this morning. Another 15 units was ordered one time and then increased ongoing orders to start this evening. * Patient is tolerating a diet. Of note, she did eat an ice cream cup at lunch as well. PLAN FOR INPATIENT GLYCEMIC CONTROL: * Hold outpatient oral diabetes medications * Basal insulin * Lantus 25 units BID * Bolus insulin: tightened CF and CR * NovoLog per scale ACHS or Q6hrs while NPO + overnight checks. * Goal Range: Low 110 mg/dL - High 140 mg/dL * Correction Factor: 12 mg/dL/unit * Nutritional / Prandial insulin per carb ratio of 1 unit per 5 grams CHO consumed PLAN FOR DISCHARGE: * HbA1c = 9.8% on 03/01/21. Goal A1c is less than 7% for this patient given age and co-morbidities. Current A1c indicates poorly controlled diabetes. * Recommend continue Metformin 1000 mg PO with meals. * Recommend adding GLP-1 receptor agonist such as Victoza 0.6 mg SQ weekly OR an SGLT2 inhibitor such as Empagliflozin 10 mg once daily if insurance covers. These meds would also promote weight loss. * If insurance does not cover the above, recommend adding basal insulin such as Lantus 15 units SQ BID with self-monitoring of blood sugars at least twice daily.
--- NOTE | 2021-03-04 10:55 | Discharge Summary ---
Date of Service March 04, 2021 Admission HPI Per Admitting Provider Mervat Alas is a 45 y/o female w/ PMHx of NIDDM, HTN, ETOH use disorder, depression, HLD, tobacco use, and CAD who presents w/ R upper dental pain since 02/17/21, was seen for this at [facility] on 02/18/21, 02/19/21 x2 and is s/p dental extractions ~02/20/21 and s/p course of clindamycin x 10 days (rx'd by ER). She is presenting w/ fever (101F x 2-3 days, intermittent), chills, sore throat, N/V, and severe sharp dental pain. Her symptoms worsened in the past several days. Current pain is 8-9/10 (some relief from the ED pain medications), throbbing, constant, exac by talking, eating, moving mouth. Pain is worse than before her dental extraction. Also has had 2 days of loose stools. She presents to the ED today because the pain is available and the earliest her dentist could see her is tomorrow. Denies other hospitalizations this year. She has been ibuprofen and Tylenol#3 at home w/o sufficient relief. Prior to this month, she had not seen a dentist in a maggie time, but denies hx of similar severe dental infection. She last took her home medications yesterday. Patient's PCP and dentist are at [facility]. Tobacco: has cut down, recently 1 pack a week. Denies illicit substance use. ED course: ED spoke w/ applications sales consultant [employer] Dr. Pulliam. Not planning for surgical intervention at this time. IV Rocephin and Flagyl. CT soft tissue head/face showing new 2.5 x 1.3 x 1.1 cm abscess within the right infratemporal fossa w/ mild extension into inferolat aspect of R orbit. Hyponatremic 128. BSG 342. 5u IV insulin administered. Morphine IV 4 mg, Dilaudid IV 0.5 mg, and 1 L NSS bolus administered. Principal Diagnosis Dental Abscess Discharge Exam Constitutional WD/WN, vitals as above + morbidly obese ENMT Mouth: + dentition abnormality, + dental caries, + poor dentition, + chipped teeth and + loose teeth Neck normal visual inspection Respiratory normal respiratory effort, lungs clear to auscultation normal respiratory effort Auscultation: lungs clear to auscultation bilaterally Cardiovascular RRR, no murmur, no edema Rate/Rhythm: regular rate and regular rhythm Gastrointestinal (Abdomen) normal bowel sounds, soft, nontender, no hepatosplenomegaly Neurologic moves all extremities Psychiatric A+Ox3, euthymic affect Orientation: alert and oriented x 3 Discharge Data Allergies Allergy/AdvReac Type Severity Reaction Status Date / Time amoxicillin Allergy Intermediate Hives and Verified 03/01/21 18:06 shortness of breath Penicillins Allergy Intermediate Hives and Verified 03/01/21 18:06 shortness of breath Consultations 03/01/21 20:26 ED Decision to Admit Stat 03/02/21 18:03 Consult Oromaxillofacial Surgery Routine Procedures Performed Operation Date: 03/03/21 09:50 Actual Procedures p Drainage of Right Facial Abscess - Peyman Kerns DMD s Removal of Multiple Teeth: 11, 13, 19, 20, 21, 22, 23, 26, 27, 28 - Peyman Kerns DMD Ordered Studies 03/01/21 18:29 CT soft tissue neck w con Stat Diabetes Follow up Diabetes Follow-up Needed for HgbA1c >9% Hospital Course (1) Dental infection: 45 y/o F w/ DM2 and recent multiple ED visits for R upper dental infection that worsened into abscess. (1) Odontogenic infection of jaw: infratemporal and pterygomaxillary fossa infection (2) Caries involving multiple surfaces of tooth: (3) Dental abscess: Sepsis was ruled out new 2.5 x 1.3 x 1.1 cm abscess within the right infratemporal fossa w/ mild extension into inferolateral orbit. Failed outpatient PO Clinda x 10d. -Here kept on IV Rocephin 2g daily and IV Flagyl q8h. -Oral surgery consult. Underwent surgery - -p Drainage of Right Facial Abscess infratemporal and pterygomaxillary fossa infection -s Removal of Multiple Teeth: 11, 13, 19, 20, 21, 22, 23, 26, 27, 28 -Switched to oral keflex and clinda on discharge -F/u with oromaxillary surgeon on 03/07 for drain removal. - blood cultures neg (2) Diabetes: - A1c 9.3 - Kept on SSI+Lantus. Resumed home meds on discharge. (3) Hyponatremia: - asymptomatic - stable sodium level at 133. (4) CAD/Hypertension: - continue home regimen (5) HLD (hyperlipidemia): - continue home regimen Morbid obesity with BMI 48.2 - outpatient discussion with pcp on weight management. Total Time Total Time Spent Total Time Spent (In Minutes): 30 Discharge Plan Discharge Items Patient Disposition: Home - Self-Care Reason For Visit: DENTAL ABSCESS Discharge Diagnosis: s/p facial abscess Condition on Discharge: Good Activity: Resume your previous activity Lifting: Gradually increase as tolerated Bathing: No limitations Exercise/Sports: Gradually increase as tolerated Driving/Machine Use: Resume 1 day after discharge Weightbearing: Full weightbearing Non-emergency contact: Surgeon Call non-emergency contact if: you have any medication questions, your pain is not controlled, your pain is unusual for you, your wound has increased redness and your wound has increased drainage Follow-up/Referrals: [facility],Medicine [Primary Care Provider] - Peyman Kerns, DMD [Physician] - Diet: Full liquid and Other - See Diet Comment Diet Texture: Pureed (blended smooth) Addtl Attending Provider Instructions: ADDITIONAL ACTIVITY RECOMMENDATIONS: * Starting tonight rinse with the Peridex as directed then 3 x a day * it is very important to keep well hydrated, this prevents fever and possible dry socket pain SPECIAL CARE INSTRUCTIONS: *It is not uncommon that between day 2-4 that your swelling will be at its worst this is very normal, do not be alarmed. n. * apply heat (hot water bottle or heating pad) for the next two days, as often as possible. * Tomorrow start rinsing your mouth with 1/2 teaspoon salt in 8 ounces warm water. This rinse should be used every 4-6 hours. * You may experience slight nausea. To prevent this, never take your medication on an empty stomach. If nauseated, take small sips of kaur regina until you feel better; then you may start on applesauce and toast. * Some swelling is common. It should gradually decrease within 4-5 days. * A certain amount of bleeding is to be expected. It is often possible to control mild oozing by placing folded gauze over the area and biting down for 30 minutes. If you are unable to control excessive bleeding, call Dr Kerns at [phone] * You may experience some discomfort for a few days. If pain or swelling increases, Call Dr Kerns * Return to the office for a follow up check up SaturdayMar 07 at 3:30 5 [place] Pending Studies at Discharge: Yes Studies:: C&S results Stand-Alone Forms: My [facility], Smoking Cessation Medications and DC Order Prescriptions: Continued ondansetron HCl 8 mg tablet 8 mg PO Q8H PRN (Reason: nausea and vomiting) Qty: 10 RF: 0 hydrocodone-acetaminophen 5-325 mg tablet 1 tab PO Q4H PRN (Reason: pain) Qty: 20 RF: 0 multivitamin [Daily Multi-Vitamin] Tablet 1 tab PO QAM RF: 0 omeprazole 20 mg Capsule,Delayed Release(Dr/Ec) 40 mg PO BID RF: 0 metformin 500 mg tablet extended release 24 hr 1,000 mg PO BID RF: 0 aspirin [Aspirin Low Dose] 81 mg Tablet,Delayed Release (Dr/Ec) 81 mg PO QAM RF: 0 lisinopril [Zestril] 5 mg Tablet 5 mg PO QAM RF: 0 rosuvastatin [Crestor] 20 mg Tablet 20 mg PO QAM RF: 0 Pill Form Of Trulicity 1 dose PO DIRECTED RF: 0 clindamycin HCl 300 mg capsule 300 mg PO BID 7 Days Qty: 14 RF: 0 cephalexin 500 mg capsule 500 mg PO TID 10 Days Qty: 30 RF: 0 oxycodone 5 mg tablet 5 mg PO Q4H PRN (Reason: pain) Qty: 15 RF: 0 Saccharomyces boulardii [Florastor] 250 mg capsule 250 mg PO BID Qty: 20 RF: 0 Discharge Orders: Discharge Order (Routine); Ordered 03/04/21 Ordered By: Nilda Aguillon Admission Data Admit Date/Time: 03/01/21 22:29 Attending Provider: Nilda Aguillon Admit Provider: dOin Slade Primary Care Provider: [facility],Medicine Other Providers: Nicolle Hickey ; Peyman Kerns Other Interventions: Discharge Summary Assessment (RN) Last Done: 03/04/21 11:47 Supervising Physician Co-Signing Physician Notes Resident Physician Supervision Note: I independently interviewed and examined the patient and verified the collins history and physical, reviewed labs and image studies and agree with resident Dr. Greer findings and care plan.
== END 2021-03-04 13:19 | disposition home or self-care (01) | DRG 603 ==
LOC: ED 15:30 → EDINP 22:29 → SUATTDRO 22:29 → EDINP 03-02 02:17 → 2N 03-02 13:30